=== PATIENT | female | born 1945 | race Caucasian/White ===

== ENCOUNTER 2018-02-19 13:24 | Outpatient (CLI) | payer MEDICARE | END 2018-02-19 13:25 | disposition home or self-care (01) | LOC: BICMAMMO 13:24 | PROVIDERS: ATTEND Internal Medicine | DX: Z12.31 Encounter for screening mammogram for malignant neoplasm of breast (principal) | CPT/HCPCS: 77063; 77067 ==

== ENCOUNTER 2018-11-07 16:40 | Emergency (ER) | payer MEDICARE ==
[2018-11-07 17:31] LABS: #Basophils 0.1 thou/uL (0.0-0.2); #Eosinphils 0.1 thou/uL (0.0-0.7); #Lymphocytes 1.6 thou/uL (1.20-3.40); #Monocytes 0.4 thou/uL (0.11-0.59); #Neutrophils 3.9 thou/uL (1.40-6.50); %Basophils 1.1 % (0.0-1.0); %Eosinophils 1.7 % (0.0-10.0); %Lymphocytes 26.3 % (21.0-51.0); %Monocytes 6.9 % (0.0-10.0); Hemoglobin 13.2 g/dL (12.0-16.0); Mean Corpuscular HGB CONC 33.5 g/dL (32.0-36.0); Mean Corpuscular Hemoglobin 33.7 pg (27.0-31.0); Mean Platelet Volume 8.6 fL (7.4-10.4); Platelet Count 189 thou/uL (130-400); RBC Distribution Width 12.3 % (11.5-14.5); White Blood Cell (WBC) Count 6.1 thou/uL (4.8-10.8)
--- NOTE | 2018-11-07 17:34 | RAD ---
PORTABLE CHEST ONE VIEW: 11/07/18 at 4:58 p.m. HISTORY: Chest pain. FINDINGS: Comparison made with exam of 02/10/16. Left sided pacemaker device remains in place. The heart size is normal. The aorta is tortuous. The ariella ngs are well expanded without focal areas of consolidation, pneumothoraces or pleural effusions. IMPRESSION: No radiographic evidence of acute cardiopulmonary process. POS: OFF
[2018-11-07 17:58] LABS: ALT (SGPT) 18 U/L (8-55); AST (SGOT) 24 U/L (5-34); Albumin 4.5 g/dL (3.4-4.8); Alkaline Phosphatase 52 U/L (40-150); Anion Gap 13 mmol/L (10-20); BUN (Urea Nitrogen) 25 mg/dL (9.8-20.1); Bilirubin, Total 0.6 mg/dL (0.2-1.2); Calc. Creatinine Clearance 0 mL/min (70-130); Calcium 10.7 mg/dL (7.8-10.44); Carbon Dioxide 27 mmol/L (23-31); Chloride 103 mmol/L (98-107); Estimated GFR-MDRD 53; Globulin 2.4 g/dL (2.4-3.5); Glucose 99 mg/dL (83-110); Potassium 4.1 mmol/L (3.5-5.1); Protein, Total 6.9 g/dL (6.0-8.3); Sodium 139 mmol/L (136-145)
== END 2018-11-07 19:02 | disposition home or self-care (01) ==
LOC: ERS 16:40
DX: M79.602 Pain in left arm (principal); R20.2 Paresthesia of skin; E03.9 Hypothyroidism, unspecified; E78.5 Hyperlipidemia, unspecified; Z79.899 Other long term (current) drug therapy
CPT/HCPCS: 36415; 71045; 80053; 84484; 85025; 93005

== ENCOUNTER 2018-12-24 09:45 | Observation (INO) | payer MEDICARE ==
[2018-12-24 10:36] LABS: #Basophils 0.1 thou/uL (0.0-0.2); #Eosinphils 0.1 thou/uL (0.0-0.7); #Lymphocytes 1.2 thou/uL (1.20-3.40); #Monocytes 0.4 thou/uL (0.11-0.59); #Neutrophils 5.7 thou/uL (1.40-6.50); %Basophils 0.7 % (0.0-1.0); %Eosinophils 1.7 % (0.0-10.0); %Lymphocytes 16.2 % (21.0-51.0); %Monocytes 5.7 % (0.0-10.0); %Neutrophils 75.7 % (42.0-75.0); Hemoglobin 13.2 g/dL (12.0-16.0); Mean Corpuscular Hemoglobin 33.3 pg (27.0-31.0); Mean Corpuscular Volume 97.8 fL (78.0-98.0); Mean Platelet Volume 8.3 fL (7.4-10.4); Platelet Count 174 thou/uL (130-400); RBC Distribution Width 12.4 % (11.5-14.5); Red Blood Cell (RBC) Count 3.98 mill/uL (4.20-5.40); White Blood Cell (WBC) Count 7.5 thou/uL (4.8-10.8)
--- NOTE | 2018-12-24 10:43 | RAD ---
CHEST ONE VIEW: INDICATIONS: Dizziness. COMPARISON: 10/21/2018 FINDINGS: Chronic lung changes are stable. A dual-lead pacemaker is stable. No acute air space opacity, pleur al effusion, or pneumothorax is evident. No acute osseous abnormality is noted. IMPRESSION: No acute abnormality. POS: TPC
[2018-12-24 10:56] LABS: ALT (SGPT) 17 U/L (8-55); AST (SGOT) 21 U/L (5-34); Albumin 4.1 g/dL (3.4-4.8); Alkaline Phosphatase 48 U/L (40-150); Anion Gap 10 mmol/L (10-20); BUN (Urea Nitrogen) 15 mg/dL (9.8-20.1); Bilirubin, Total 0.7 mg/dL (0.2-1.2); CK (CPK) 46 U/L (29-168); Calc. Creatinine Clearance 0 mL/min (70-130); Calcium 10.5 mg/dL (7.8-10.44); Carbon Dioxide 30 mmol/L (23-31); Chloride 102 mmol/L (98-107); Estimated GFR-MDRD 57; Globulin 2.4 g/dL (2.4-3.5); Glucose 96 mg/dL (83-110); Lipase 18 U/L (8-78); Potassium 3.6 mmol/L (3.5-5.1); Protein, Total 6.5 g/dL (6.0-8.3); Sodium 138 mmol/L (136-145)
--- NOTE | 2018-12-24 10:59 | CT ---
Head CT without contrast 12/24/2018: HISTORY: Syncope, dizziness, nausea COMPARISON: 10/18/2018 TECHNIQUE: Axial CT imaging at 5 mm intervals from vertex through skull base without contrast FINDINGS: Imaged paranasal sinuses/mastoid air cells well-aerated. Mild cerebral volume loss. No intr acranial hemorrhage, midline shift, or mass effect. No acute osseous abnormality. IMPRESSION: No acute findings.
--- NOTE | 2018-12-24 12:12 | CT ---
CT PULMONARY ANGIOGRAM WITH IV CONTRAST AND 3D POSTPROCESSING: Date: 12/24/18 HISTORY: Dizziness, presyncope, elevated D-Dimer. FINDINGS: There is good opacification of the pulmonary arterial vasculature without filling defects to suggest pulmonary embolism. There are vascular calcifications without evidence of aneurysmal dilatation of the thoracic aorta. No pleural or pericardial effusions are seen. Emphysematous changes are seen in the lung [place] bilaterally. There are dependent changes in the adalgisa g bases. No lobar consolidation, pneumothoraces, or lung masses are identified. There are mild subseg mental atelectatic changes in the lingula. There are degenerative changes in the spine. IMPRESSION: No CT evidence of pulmonary embolism. POS: TPC
[2018-12-24] MEDS ORDERED: Ondansetron ODT 4 MG TAB PO PRN (13:05)
[2018-12-24] MEDS ORDERED: Ondansetron PF 4 MG/2 ML Vial IVP PRN (13:05)
[2018-12-24] MEDS ORDERED: Acetaminophen 325 MG TAB PO PRN (13:05)
[2018-12-24] MEDS ORDERED: Senokot S 8.6-50 MG TAB PO PRN (13:05)
[2018-12-24] MEDS ORDERED: Calcium Carbonate 500 MG ChewTAB PO PRN (13:05)
[2018-12-24 13:15] LABS: Bacteria/HPF None Seen HPF (None Seen); Bilirubin Negative (Negative); Blood, Urine 1+ (Negative); Clarity Clear (Clear); Glucose, Urine (Dipstick) Normal (Negative); Leukocyte Negative Leu/uL (Negative); Mucous/LPF Rare LPF (<2+); Nitrite Negative (Negative); Protein, Urine (Dipstick) Negative (Neg-Trace); Squamous Epithelial 0-3 HPF (0-3); Urobilinogen Normal mg/dL (Less than 2); WBC/HPF 0-3 HPF (0-3)
--- NOTE | 2018-12-24 13:37 | HP ---
PRIMARY CARE PHYSICIAN: Hector Mary MD PRIMARY BLOOD BANK CALENDAR CONTROL CLERK: Wilma Aguillon MD CHIEF COMPLAINT: Near syncopal episode. HISTORY OF PRESENT ILLNESS: The patient is a 73-year-old female with symptomatic bradycardia, status post pacemaker, hypertension, and hypothyroidism presented to the emergency room with near syncopal episode. History obtained from the patient. The patient had a near syncopal episode while she was at home earlier today. She denies any loss of consciousness. No warning symptoms reported. It was sudden onset, lasted for approximately 5 minutes or so. She was nauseous, however, denies any vomiting. Over the last 1 week, the patient has been dizzy on and off. Denies any palpitations, fever, chills, dysuria, hematuria, or urgency. No recent immobilization travel. No similar symptoms in the past. Per ER report, the patient recently had an MRI and was found to have spurs in her vertebrae. She was started on tramadol. She is also on ciprofloxacin for unclear reason. In the emergency room, her initial vital signs showed temperature 97.5 with respirations of 16, pulse rate of 60, blood pressure of 139/82 with O2 saturation 99% on room air. Her EKG showed paced rhythm. CT angiogram of the chest was negative for pulmonary embolism. Orthostatic vitals in the emergency room were negative. PAST MEDICAL HISTORY: 1. Symptomatic bradycardia status post pacemaker in 2016. 2. GERD. 3. Hypothyroidism. 4. Glaucoma followed by Dr. Youngblood. 5. Psoriasis. PAST SURGICAL HISTORY: 1. History of retinal surgery. 2. Cataract surgery. 3. Oral surgery. 4. Tonsillectomy. ALLERGIES: NO KNOWN DRUG ALLERGIES. CURRENT MEDICATIONS: 1. Amlodipine 10 mg daily. 2. Nexium 40 mg daily. 3. Tramadol as needed. 4. Ciprofloxacin 250 mg b.i.d. 5. Lipitor 20 mg at bedtime. 6. Martha 180 mg daily. SOCIAL HISTORY: The patient denies any smoking. Drinks alcohol socially. Stays at home with her . She is full code and makes her own decision with the help of her . FAMILY HISTORY: Mother of complications of heart failure. Hypertension runs in her family. Father of stroke at the age of 74. REVIEW OF SYSTEMS: All other review of systems was reviewed and were found negative. PHYSICAL EXAMINATION: VITAL SIGNS: As discussed above. GENERAL: A 73-year-old female in no apparent distress. HEENT: Head, atraumatic and normocephalic. Sclerae anicteric. Moist mucous membranes. No oral lesion. Pupils were 3-4 mm bilaterally, responding to light. NECK: Supple. No JVD appreciated. No carotid bruit. LUNGS: Clear to auscultation bilaterally. No wheezing, rales, or rhonchi. HEART: S1, S2 present. Regular rate and rhythm. No rubs or gallops appreciated. There is 3/6 systolic murmur over the mitral area. ABDOMEN: Soft, nontender. Bowel sounds present. No rebound or guarding. No costovertebral angle tenderness. EXTREMITIES: No edema or calf tenderness. Power was 5/5 in all extremities. Nhgkfr-[id number] test was normal. NEUROLOGY: Grossly nonfocal, moves all 4 extremities. PSYCHIATRY: Alert, awake, and oriented x3. SKIN: Warm and dry. LYMPH NODE: No palpable lymph nodes in the neck. PERIPHERAL VASCULAR: Radial pulses palpable bilaterally. MUSCULOSKELETAL: No joint swelling or tenderness. DIAGNOSTIC DATA: EKG by my review showed paced rhythm. Chest x-ray by my review was negative for infiltrate or edema. CT scan of the brain was negative for acute findings. WBC was 7.5, hemoglobin 13.2, hematocrit 38.9, platelet 174. Chemistry showed sodium 138, potassium 3.6, chloride 102, bicarb 30, BUN 15, and creatinine 0.95. TSH was normal. IMPRESSION: 1. Near syncope of unclear etiology. 2. Symptomatic bradycardia, status post pacemaker in 2016. 3. Gastroesophageal reflux disease. 4. Hypothyroidism. 5. Hypertension. 6. Glaucoma. 7. Hypercalcemia. Her calcium in October was 10.7. 8. Chronic diastolic heart failure. 9. No significant stenosis on the carotid Doppler, last admission. PLAN: The patient will be monitored on the telemetry unit. Pacemaker will be interrogated. We will get echocardiogram. Orthostatic vitals were negative. We will consult Cardiology, Dr. Aguillon. I checked with Dr. Aguillon' office to see if echo was done recently. We will start her on gentle IV hydration. Consult walking program. Check folic acid, vitamin B12. Rule out urinary tract infection. We will discuss with the why the patient is on ciprofloxacin. Recheck labs in a.m. Fall precautions. Plan was discussed with the patient in detail. She stated understanding. We will recheck orthostatic vitals in a.m. Job ID: [id number]
[2018-12-24] MEDS ORDERED: ISOVUE-370 76%-LOCM 1 ML ONE (13:54)
[2018-12-24 14:59] VITALS: BMI 20.9
[2018-12-24 15:09] LABS: Troponin I 0.014 ng/mL (< 0.028)
[2018-12-24 15:37] LABS: Folate (Folic Acid) 11.4 ng/mL (7.0-31.4)
[2018-12-24] MEDS: Sodium Chloride 0.9% 1,000 ML IV SCH (16:11)
[2018-12-24] MEDS ORDERED: traMADol HCl 50 MG TAB PO PRN (17:02)
[2018-12-24] MEDS ORDERED: Cyanocobalamin 1000 MCG/ML VIAL IM SCH (17:15)
[2018-12-24 18:02] LABS: Troponin I Less than 0.010 ng/mL (< 0.028)
[2018-12-24] MEDS: Cipro 250 MG TAB PO SCH (19:58)
[2018-12-24] MEDS: Brimonidine Tartrate 0.2% Ophth Soln 5 ml Bottle EA EYE SCH (20:46)
[2018-12-24] MEDS: Timolol 0.5% Ophth Soln 5 ml Bottle EA EYE SCH (20:46)
[2018-12-24] MEDS ORDERED: Atorvastatin Calcium 20 MG TAB PO SCH (21:00)
[2018-12-25] MEDS: Sodium Chloride 0.9% 1,000 ML IV SCH ×2 (04:51→18:17)
[2018-12-25 04:58] LABS: Anion Gap 9 mmol/L (10-20); BUN (Urea Nitrogen) 12 mg/dL (9.8-20.1); Calc. Creatinine Clearance 58 mL/min (70-130); Calcium 10.1 mg/dL (7.8-10.44); Carbon Dioxide 30 mmol/L (23-31); Chloride 104 mmol/L (98-107); Estimated GFR-MDRD 73; Glucose 87 mg/dL (83-110); Potassium 3.3 mmol/L (3.5-5.1); Sodium 140 mmol/L (136-145)
[2018-12-25] MEDS: Cipro 250 MG TAB PO SCH (05:31)
[2018-12-25] MEDS ORDERED: Levothyroxine Sodium 100 MCG TAB PO SCH (06:00)
[2018-12-25] MEDS ORDERED: Cyanocobalamin (Vitamin B-12) 1,000 MCG TAB PO SCH (09:00)
[2018-12-25] MEDS ORDERED: Loratadine 10 MG TAB PO SCH (09:00)
[2018-12-25] MEDS ORDERED: Amlodipine 5 MG TAB PO SCH (09:00)
--- NOTE | 2018-12-25 09:32 | CON ---
DATE OF CONSULTATION: HISTORY: Shyanne Salas is a 73-year-old white female patient, followed by Dr. Aguillon, who had a pacemaker placed in January 2016, and then the following day had atrial lead revision. She has continued to be followed in the office since that time with normal pacemaker function. It is somewhat confusing to me in reviewing the record in that when she presents to the emergency room, she complained of nausea and dizziness, but no vomiting. However, the patient denies any lightheadedness, dizziness, or nausea to me. She states that the reason she came in was pain in her left arm that radiated to her fingers and thumb as well as pain on the left side of her face. She states that this was very intense, it lasted approximately 1 minute, but is still somewhat there at this time. She denies any chest discomfort. PAST MEDICAL HISTORY: Symptomatic bradycardia, status post pacemaker, GERD, hypothyroidism, and psoriasis. PAST SURGICAL HISTORY: Pacemaker placement, cataract surgery, retinal surgery, tonsillectomy MEDICATIONS: 1. Amlodipine 5 mg daily. 2. Atorvastatin 20 at bedtime. 3. Cipro 250 q.12 hours. 4. Nexium 40 mg daily. 5. Fexofenadine 180 mg daily. 6. Levothyroxine 100 mcg daily. 7. Tramadol 50 q.i.d. p.r.n. ALLERGIES: BASIL MINT AND PASTA. SOCIAL HISTORY: She does not smoke. She occasionally drinks alcohol. FAMILY HISTORY: Negative for coronary artery disease. REVIEW OF SYSTEMS: A 12-point review of systems is otherwise unremarkable. PHYSICAL EXAMINATION: VITAL SIGNS: BP 140/70 and pulse 74. HEENT: PERRL. NECK: Supple. CHEST: Clear. CARDIAC: S1 and S2 normal without any S3 or S4. There is a 2/6 holosystolic murmur at the apex. ABDOMEN: Normal bowel sounds without tenderness or organomegaly. EXTREMITIES: No clubbing, cyanosis or edema. NEUROLOGIC: Grossly intact. SKIN: Warm and dry. LABORATORY DATA/DIAGNOSTIC DATA: EKG reveals atrial pacing, poor R-wave progression. White count 7500, hemoglobin 13.2, hematocrit 38.9, and platelets 174,000. D- dimer 0.56. Sodium 138, potassium 3.6, chloride 102, carbon dioxide 30, BUN 15, creatinine 0.95, and calcium 10.5. Troponin I is normal. TSH is normal. Pacemaker was interrogated and it showed normal function, and she did not have any arrhythmias. Brain CT revealed no acute findings. Chest CTA revealed no evidence of pulmonary emboli. There are calcifications in the thoracic aorta, but no dilatation. No mention is made of any coronary artery calcifications. IMPRESSION: 1. Episode of lightheadedness and nausea, which is not related to a cardiac arrhythmia. However, the patient denies that she had these symptoms. 2. Normal pacemaker function. 3. Left arm pain. 4. Hypertension. 5. Hypothyroidism. 6. Gastroesophageal reflux disease. 7. Hypercalcemia. PLAN: The patient will continue to be monitored, although she has normal pacemaker function. Echocardiogram will be performed. Some of her left arm and left facial pain may be related to cervical radiculopathy. Job ID: [id number] [facility]
[2018-12-25] MEDS: Potassium Chloride 10 MEQ TAB PO SCH ×2 (09:37→18:17)
[2018-12-25] MEDS: Timolol 0.5% Ophth Soln 5 ml Bottle EA EYE SCH (09:38)
[2018-12-25] MEDS: Brimonidine Tartrate 0.2% Ophth Soln 5 ml Bottle EA EYE SCH (09:38)
[2018-12-25 15:52] VITALS: BP 128/60; TEMP 97.5
--- NOTE | 2018-12-25 19:30 | DIS ---
DATE OF ADMISSION: 12/24/2018 DATE OF DISCHARGE: 12/25/2018 DISCHARGE DISPOSITION: Home. FOLLOWUP: Follow up with primary care physician, Dr. Mary in 1 week. Fall precaution with 24-hour supervision was recommended. DISCHARGE MEDICATIONS: 1. Multivitamin 1 tablet daily. 2. Vitamin B12 of 1000 mcg daily. All other home medications were left unchanged INPATIENT HEARTH FEEDER: Cardiology, Dr. Mary, who was covering for Dr. Aguillon. BRIEF HOSPITAL COURSE: The patient is a 73-year-old female with symptomatic bradycardia, status post pacemaker and hypertension, presented to the emergency room with near syncopal episode. Please refer to the history and physical for further details. The patient was admitted to the hospital with a diagnosis of near-syncope of unclear etiology. The pacemaker was checked, which was normal. Echocardiogram was performed that showed left ventricular ejection fraction of 50% to 55% with diastolic dysfunction. It also showed ojwvpsyd-[id number] mitral regurgitation and mild tricuspid regurgitation. Telemetry monitoring showed paced rhythm. Orthostatic vitals were negative. Vitamin B12 level was found to be 260. A potassium was 3.6 on admission and 3.3 at discharge. Basic metabolic profile after 1 week is recommended. Primary care physician advised to follow. She has been started on vitamin B12 supplementation. The patient has been cleared by Cardiology for discharge. All other home medications were left unchanged. The near syncope could probably be due to dehydration. Calcium on admission was 10.5 and at discharge was 10.1 after IV hydration. FINAL DIAGNOSES: 1. Near syncope of unclear etiology. 2. Symptomatic bradycardia, status post pacemaker in 2016. Pacemaker check showed normal function. 3. Gastroesophageal reflux disease. 4. Hypothyroidism. 5. Hypertension. 6. Glaucoma. 7. Hypercalcemia, probably secondary to mild dehydration. 8. Chronic diastolic heart failure. 9. No significant carotid stenosis on the carotid Doppler, last admission. 10. Vitamin B12 deficiency. 11. Chronic kidney disease, stage 3. PLAN: Plan of care was discussed with the patient and at the bedside. They stated understanding. Job ID: [id number]
--- NOTE | 2018-12-28 16:20 | EKG ---
Test Reason : Blood Pressure : / mmHG Vent. Rate : 061 BPM Atrial Rate : 063 BPM P-R Int : 186 ms QRS Dur : 064 ms QT Int : 398 ms P-R-T Axes : -74 055 071 degrees QTc Int : 400 ms Atrial-paced rhythm Septal infarct , age undetermined Abnormal ECG Confirmed by MEI HERNANDES, VICTORINA ([id number]), video news editor ELIEZER SLOAN ([id number]) on 12/28/2018 4:20:02 PM Referred By: Confirmed By:VICTORINA HURLEY MD
== END 2018-12-25 19:01 | disposition home or self-care (01) ==
LOC: ERS 09:45 → 2SW 14:54
PROVIDERS: ADMIT Internal Medicine; ATTEND Internal Medicine
DX: R55 Syncope and collapse (principal); R00.1 Bradycardia, unspecified; K21.9 Gastro-esophageal reflux disease without esophagitis; E03.9 Hypothyroidism, unspecified; I13.0 Hypertensive heart and chronic kidney disease with heart failure and stage 1 through stage 4 chronic kidney disease, or unspecified chronic kidney disease; N18.3 Chronic kidney disease, stage 3 (moderate); I50.32 Chronic diastolic (congestive) heart failure; H40.9 Unspecified glaucoma; E83.52 Hypercalcemia; E53.8 Deficiency of other specified B group vitamins; E78.5 Hyperlipidemia, unspecified; Z95.0 Presence of cardiac pacemaker; Z91.018 Allergy to other foods; Z91.048 Other nonmedicinal substance allergy status; Z79.2 Long term (current) use of antibiotics; Z79.899 Other long term (current) drug therapy
CPT/HCPCS: 70450; 71045; 71275; 80048; 82550; 82607; 82746; 83605; 83690; 83735; 83880; 84484 ×2; 85379; 87040; 93005; 96360; 96361 ×2; 97139; 99285; G0378 ×2; 36415; 80053; 81003; 81015; 84443; 85025; J3420; Q9966

== ENCOUNTER 2019-03-17 14:28 | Observation (INO) | payer MEDICARE ==
[2019-03-17 15:44] LABS: #Basophils 0.1 thou/uL (0.0-0.2); #Eosinphils 0.2 thou/uL (0.0-0.7); #Lymphocytes 1.4 thou/uL (1.20-3.40); #Monocytes 0.5 thou/uL (0.11-0.59); #Neutrophils 3.9 thou/uL (1.40-6.50); %Basophils 1.5 % (0.0-1.0); %Eosinophils 2.6 % (0.0-10.0); %Lymphocytes 23.7 % (21.0-51.0); %Monocytes 8.1 % (0.0-10.0); %Neutrophils 64.1 % (42.0-75.0); Hemoglobin 12.6 g/dL (12.0-16.0); Mean Corpuscular HGB CONC 33.6 g/dL (32.0-36.0); Mean Corpuscular Hemoglobin 33.4 pg (27.0-31.0); Mean Corpuscular Volume 99.4 fL (78.0-98.0); Mean Platelet Volume 8.4 fL (7.4-10.4); Platelet Count 164 thou/uL (130-400); RBC Distribution Width 12.8 % (11.5-14.5); Red Blood Cell (RBC) Count 3.78 mill/uL (4.20-5.40); White Blood Cell (WBC) Count 6.1 thou/uL (4.8-10.8)
--- NOTE | 2019-03-17 16:00 | CT ---
CT BRAIN WITHOUT CONTRAST: Date: 03/17/19 HISTORY: Dizziness. Syncope. FINDINGS: Comparison made with exam of 12/24/18. No evidence of acute infarct, hemorrhage, midline shift, or abnormal extra-axial fluid collections ar e seen. The ventricular size is stable and the basilar cisterns are patent. The bony calvarium is int act. The visualized paranasal sinuses and mastoid air cells are well aerated. IMPRESSION: No CT evidence of acute intracranial process. POS: OFF
[2019-03-17 16:08] LABS: ALT (SGPT) 17 U/L (8-55); AST (SGOT) 18 U/L (5-34); Albumin 4.1 g/dL (3.4-4.8); Alkaline Phosphatase 52 U/L (40-110); Anion Gap 8 mmol/L (10-20); BUN (Urea Nitrogen) 16 mg/dL (9.8-20.1); Bilirubin, Total 0.4 mg/dL (0.2-1.2); Calc. Creatinine Clearance 0 mL/min (70-130); Calcium 10.1 mg/dL (7.8-10.44); Carbon Dioxide 31 mmol/L (23-31); Chloride 104 mmol/L (98-107); Estimated GFR-MDRD 55; Globulin 2.6 g/dL (2.4-3.5); Glucose 70 mg/dL (83-110); Potassium 3.9 mmol/L (3.5-5.1); Protein, Total 6.7 g/dL (6.0-8.3); Sodium 139 mmol/L (136-145)
[2019-03-17] MEDS ORDERED: Aspirin 325 MG TAB ONE (16:45)
[2019-03-17 17:22] LABS: Bacteria/HPF None Seen HPF (None Seen); Bilirubin Negative (Negative); Blood, Urine 2+ (Negative); Clarity Clear (Clear); Glucose, Urine (Dipstick) Normal (Negative); Leukocyte Negative Leu/uL (Negative); Nitrite Negative (Negative); Protein, Urine (Dipstick) Negative (Neg-Trace); Squamous Epithelial None Seen HPF (0-3); Urobilinogen Normal mg/dL (Less than 2); WBC/HPF 0-3 HPF (0-3)
[2019-03-17] MEDS ORDERED: Senokot S 8.6-50 MG TAB PO PRN (18:14)
[2019-03-17] MEDS ORDERED: Acetaminophen 325 MG TAB PO PRN (18:14)
--- NOTE | 2019-03-18 01:42 | HP ---
PRIMARY CARE PHYSICIAN: Hector Mary MD CHIEF COMPLAINT: Lightheadedness, left-sided facial twitching, and tingling. HISTORY OF PRESENT ILLNESS: Ms. Salas is a 73-year-old female with past medical history of hypertension, bradycardia status post pacemaker in 2016, hyperlipidemia, and hypothyroidism, presents to the ER for left-sided facial tingling with associated dizziness and lightheadedness. The patient reports that symptoms started around noon on day of admission, lasting 1 minute and recurred about 2 or 3 times. She denied any focal weakness and denies any current tingling at this time. She denied any chest pain, shortness of breath, syncope, headache, vision changes, abdominal pain, or nausea. The patient reports that she has had 2-3 weeks of dizziness, lightheadedness, had a near syncope episode several weeks ago, is being worked up by her PCP. Reports that she was taken off some blood pressure medications for orthostatic hypotension, but she believes that the episode today is different than that she had 2-3 weeks ago. The patient recently hospitalized for syncope, had an echocardiogram done in December of 2018, which showed an ejection fraction at 50-55%, normal size left atrium, left ventricular size is normal, impaired relaxation compatible with diastolic dysfunction, prolapsed anterior leaflet of mitral valve, moderate to severe mitral regurgitation, mild tricuspid regurgitation. Pacer wires visualized in the ventricle. EKG in the emergency room showed paced rhythm. T-waves normal. ST segments normal. Radiology, CT of the head without contrast showed no acute findings. The patient will be admitted to the Stroke Unit for further management. PAST MEDICAL HISTORY: Pertinent for bradycardia treated with a pacemaker, hypothyroidism, and hyperlipidemia. PAST SURGICAL HISTORY: Tonsillectomy, insertion of a pacemaker, wisdom teeth extraction, cataracts bilateral, history of laser surgery to the right eye, retina replaced in the left eye and also in the right eye. SOCIAL HISTORY: The patient denies any drug use. Reports that she drinks every day, less than 5 drinks per day. Has no smoking history. REVIEW OF SYSTEMS: The patient reports weakness. Reports left-sided intermittent tingling has since resolved. Denies any shortness of breath. Denies any peripheral weakness, numbness, or tingling. GI, denies any abdominal pain, constipation, or diarrhea. Does report some melena for the last 3 days. Reports last colonoscopy was 5 years ago. Reports a near syncopal episode 3 weeks ago. Reports some dizziness. Denies any speech changes. Denies any sensory changes. All other systems are reviewed and are negative unless mentioned in the HPI. PHYSICAL EXAMINATION: VITAL SIGNS: Blood pressure 190/103, pulse is 60, respirations 17, temperature is 97.9, and O2 saturations are 99% on room air. CONSTITUTIONAL: The patient is alert and oriented to person, place, and time. She is in no acute distress. HEENT: Head is atraumatic and normocephalic. Eyes, pupils are equal, round, and reactive to light. Sclerae are normal. ENT; mouth exam is normal. Mucous membranes are moist. NECK: Normal range of motion. Trachea is midline. RESPIRATORY: Chest; breath sounds are clear. Chest movement is symmetrical. CARDIOVASCULAR: Paced rhythm. Heart sounds are normal. ABDOMEN: Nontender. Bowel sounds are heard. EXTREMITIES: Upper extremities; normal to inspection. Normal motor strength, normal sensation. Radial pulses are normal. Lower extremities; normal inspection. Normal range of motion. Normal sensation. Pedal pulses are normal. No edema is noted. NEURO: The patient is oriented to person, place, and time. Speech is normal. Cranial nerves II through XII are grossly intact. There are no focal sensory or motor deficits. No nystagmus. SKIN: Warm and dry. Normal in color. DIAGNOSTIC STUDIES: LABORATORY RESULTS: Urine shows 2+ urine, 2+ blood. Troponin is undetectable. Chemistry unremarkable. CBC, white blood cell count 6.1, hemoglobin 12.6, hematocrit is 37.6, and platelets are 164. PLAN/ASSESSMENT: 1. Possible transient ischemic attack. We will obtain an MRI of the brain without contrast if this is compatible with her pacemaker. Obtain carotid Dopplers. The patient has already had an echo within the last 3 months. We will ask PT/OT to evaluate. Aspirin 325 mg daily, which we will do once the guaiac has been collected and is negative. 2. Reports history of melena. We will obtain guaiac stool for evaluation. Hemoglobin and hematocrit appear stable. 3. History of hypertension. We will restart home medications once the MRI is done. Until then, permissive hypertension protocol. 4. Hyperlipidemia. We will restart Lipitor. 5. Hypothyroidism, obtain a TSH and restart home medications. 6. Gastrointestinal and deep venous thrombosis prophylaxis has been started. 7. Hospital course dependent on clinical findings. Job ID: [id number]
[2019-03-18 03:35] LABS: #Basophils 0.1 thou/uL (0.0-0.2); #Eosinphils 0.1 thou/uL (0.0-0.7); #Lymphocytes 1.4 thou/uL (1.20-3.40); #Monocytes 0.5 thou/uL (0.11-0.59); #Neutrophils 3.6 thou/uL (1.40-6.50); %Basophils 0.9 % (0.0-1.0); %Eosinophils 2.4 % (0.0-10.0); %Lymphocytes 24.5 % (21.0-51.0); %Monocytes 9.2 % (0.0-10.0); Hemoglobin 11.8 g/dL (12.0-16.0); Mean Corpuscular Hemoglobin 33.8 pg (27.0-31.0); Mean Corpuscular Volume 99.3 fL (78.0-98.0); Mean Platelet Volume 8.3 fL (7.4-10.4); Platelet Count 150 thou/uL (130-400); RBC Distribution Width 12.9 % (11.5-14.5); Red Blood Cell (RBC) Count 3.49 mill/uL (4.20-5.40); White Blood Cell (WBC) Count 5.8 thou/uL (4.8-10.8)
[2019-03-18 04:13] LABS: Anion Gap 8 mmol/L (10-20); BUN (Urea Nitrogen) 19 mg/dL (9.8-20.1); Calc. Creatinine Clearance 0 mL/min (70-130); Carbon Dioxide 31 mmol/L (23-31); Chloride 105 mmol/L (98-107); Estimated GFR-MDRD 63; Glucose 73 mg/dL (83-110); Potassium 3.9 mmol/L (3.5-5.1); Sodium 140 mmol/L (136-145)
[2019-03-18] MEDS: Levothyroxine Sodium 100 MCG TAB PO SCH (06:18)
[2019-03-18] MEDS ORDERED: Enoxaparin Sodium 40 MG/0.4 ML SYRINGE SC SCH (09:00)
--- NOTE | 2019-03-18 09:00 | ULT ---
BILATERAL CAROTID DUPLEX ULTRASOUND: HISTORY: Left-sided facial droop. TECHNIQUE: Hallman-scale ultrasound with color-flow and spectral Doppler imaging of the extracranial carotid artery systems is performed bilaterally. FINDINGS: There is plaque formation on either side. The peak systolic velocity in the right ICA measures 65 cm per second with an end diastolic velocity of 22 cm per second and a systolic ratio of 1.07. The peak systolic velocity in the left ICA measures 66 cm per second with an end diastolic velocity o f 24 cm per second and a systolic ratio of 1.2. Flow in both vertebral arteries remains antegrade. IMPRESSION: No evidence of hemodynamically significant stenosis. POS: OFF
[2019-03-18] MEDS: Famotidine 20 MG TAB PO SCH ×2 (10:38→10:40)
[2019-03-18] MEDS ORDERED: Labetalol HCl 100 MG/20 ML VIAL SLOW IVP PRN (10:41)
[2019-03-18] MEDS ORDERED: Amlodipine 5 MG TAB PO SCH (10:45)
[2019-03-18 10:48] VITALS: BMI 21.3
[2019-03-18] MEDS: Pantoprazole 40 MG VIAL IVP SCH ×3 (11:05→21:40)
[2019-03-18 11:14] LABS: Hemoglobin 12.8 g/dL (12.0-16.0)
[2019-03-18] MEDS ORDERED: Pantoprazole 40 MG VIAL ONE (11:46)
[2019-03-18] MEDS ORDERED: Atorvastatin Calcium 20 MG TAB PO SCH (21:00)
[2019-03-18] MEDS: Timolol 0.5% Ophth Soln 5 ml Bottle EA EYE SCH (21:50)
[2019-03-18] MEDS: Brimonidine Tartrate 0.2% Ophth Soln 5 ml Bottle EA EYE SCH (21:50)
--- NOTE | 2019-03-18 23:01 | PRG ---
DATE OF SERVICE: 03/18/2019 SUBJECTIVE: A 73-year-old female with hypertension, sick sinus syndrome, status post pacemaker, hyperlipidemia, and hypothyroidism, presented to the emergency room with lightheadedness along with left-sided paresthesias. She has currently been admitted for possible transient ischemic attack. She denies any symptoms at this time. No fever, chills, chest pain, shortness of breath, headache, seizure, or syncope reported. Over the last 3 days, the patient had dark tarry stool. She denies any new episodes at this time. REVIEW OF SYSTEMS: As discussed above. OBJECTIVE: VITAL SIGNS: Temperature 97.3, pulse rate of 60, respirations of 18, blood pressure of 154/87, O2 saturation of 100% on room air, and respirations of 18. Her blood pressure in the emergency room on arrival was 161/86. She also had blood pressure of 205/117 in the emergency room. GENERAL: A 73-year-old female, in no apparent distress. LUNGS: Clear to auscultation bilaterally. No wheezing, rales, or rhonchi. HEART: S1 and S2 present. Regular rate and rhythm. No rubs or gallops. ABDOMEN: Soft and nontender. Bowel sounds present. EXTREMITIES: No edema or calf tenderness. NEUROLOGY: Cranial nerves 2 through 12 are normal on examination. Power was 5/5 in all extremities. Epjmjt-fk-qncc and jsim-on-medu test was normal. Reflexes were equivocal. Sensation to touch was normal bilaterally. PSYCHIATRY: The patient is alert, awake, and oriented x3. Normal affect. She is a poor historian. LABORATORY DATA: Hemoglobin 12.8, hematocrit 37.9. Vitamin B12 of 456, folic acid 12.7, and magnesium 2.7. Creatinine of 0.88. Urinalysis was negative. Carotid Doppler was negative for hemodynamically significant stenosis. IMPRESSION: 1. Suspected transient ischemic attack. Aspirin is currently on hold due to melena. 2. Melena over the last 2 to 3 days. The patient denies any current use of antiplatelet agent. 3. Hypertension. 4. Hyperlipidemia. 5. Hypothyroidism. 6. Sick sinus syndrome, status post pacemaker. 7. Gastroesophageal reflux disease. 8. Glaucoma. 9. Chronic diastolic heart failure. 10. History of vitamin B12 deficiency. 11. Chronic kidney disease, stage 2. PLAN: The patient will be monitored in the stroke unit. We will recheck hemoglobin in a.m. Gastroenterology Team has been consulted. Aspirin is currently on hold due to melena. We will check fasting lipid profile in a.m. Consult Physical Therapy and Occupational Therapy. Continue amlodipine, statin, and levothyroxine. The patient has been started on IV PPIs as well. P.r.n. antihypertensives. Clear liquid diet. Plan of care was discussed with the patient in detail, she stated understanding. Job ID: [id number]
--- NOTE | 2019-03-18 23:50 | CON ---
DATE OF CONSULTATION: 03/18/2019 CHIEF COMPLAINT: Dark stools. HISTORY OF PRESENT ILLNESS: Ms. Salas is a 73-year-old woman, who was admitted through the emergency room last night with lightheadedness and some tingling and left-sided face twitching. There was concern for possible transient ischemic attack and she was admitted and monitored in the stroke unit. She reports that she has had dark stools 1 to 2 times per day for the last four days. She has had no nausea, vomiting, or abdominal pain. No diarrhea or constipation. No change in her diet. She has not had any Pepto-Bismol. She states that she has been on Nexium 40 mg daily for history of acid reflux, but all her acid reflux symptoms actually went away after she stopped drinking wine. PAST MEDICAL HISTORY: Hypothyroidism, hyperlipidemia, bradycardia status post pacemaker placement. PAST SURGICAL HISTORY: Her last EGD was in September of 2015. She had benign fundic gland polyps noted in the stomach, but otherwise EGD was normal. She had colonoscopy in September of 2015, for screening which was normal. She has followed with Dr. Hallman previously. PAST SURGICAL HISTORY: Continued tonsillectomy, pacemaker placement, wisdom tooth removal, cataract surgery. SOCIAL HISTORY: She previously has been drinking wine in the evening, but states that she quit doing that and her reflux symptoms resolved. She has no smoking history or drug use. FAMILY HISTORY: Negative for GI malignancy. ALLERGIES: NO KNOWN DRUG ALLERGIES. MEDICATIONS: Prior to admission: 1. Multiple vitamin. 2. Levothyroxine. 3. Martha. 4. Nexium 40 mg daily. 5. Eye drops. 6. Atorvastatin. 7. Amlodipine. REVIEW OF SYSTEMS: Negative x10 systems reviewed except as stated in the history of present illness. PHYSICAL EXAMINATION: VITAL SIGNS: Temperature 97.5, pulse 70, blood pressure 193/89. GENERAL: She is in no acute distress. Alert and oriented x3. HEENT: Eyes have no scleral icterus. Oropharynx is clear without lesions. No cervical or supraclavicular lymphadenopathy. LUNGS: Clear to auscultation bilaterally. HEART: Regular rate and rhythm without murmur. ABDOMEN: Soft, nontender, and nondistended. Bowel sounds are present. EXTREMITIES: No lower extremity edema. RECTAL: Reveals brown stool in the rectal vault. LABORATORY DATA: White blood cell count 5.8, hemoglobin is 12.8, platelets 150, creatinine 0.88. Liver tests were normal. IMPRESSION: 1. Change in bowel habits with dark stools for the last 3 or 4 days. She was reportedly Hemoccult positive in the ER. She has brown stool in the rectal vault now without signs of overt bleeding. She had negative esophagogastroduodenoscopy and colonoscopy in 2016. 2. History of gastroesophageal reflux disease. She has been on Nexium 40 mg daily. She has been asymptomatic since she quit drinking wine in the evening. She could try to cut the Nexium back to 20 mg daily over the counter and if this controls her symptoms just as well, then she can remain on the lower dose. RECOMMENDATIONS: 1. Anticipate discharge home tomorrow. 2. Continue to follow her hemoglobin tomorrow morning and for further signs of overt bleeding. 3. For now, there is no evidence of acute GI bleed and she can follow up in GI clinic as needed. Job ID: [id number]
[2019-03-19 05:07] LABS: Hemoglobin 11.7 g/dL (12.0-16.0); Platelet Count 150 thou/uL (130-400)
[2019-03-19 05:28] LABS: Cardiac Risk 3.2 (Less than 4.5)
[2019-03-19] MEDS: Levothyroxine Sodium 100 MCG TAB PO SCH (06:34)
[2019-03-19] MEDS ORDERED: FLU VACC TS2019-20(65YR UP)/PF 180 MCG/0.5 ML SYRINGE IM ONE (09:00)
[2019-03-19] MEDS ORDERED: Amlodipine 5 MG TAB PO SCH (09:00)
[2019-03-19] MEDS: Pantoprazole 40 MG VIAL IVP SCH (09:27)
[2019-03-19] MEDS: Timolol 0.5% Ophth Soln 5 ml Bottle EA EYE SCH (09:44)
[2019-03-19] MEDS: Brimonidine Tartrate 0.2% Ophth Soln 5 ml Bottle EA EYE SCH (09:45)
[2019-03-19 11:43] VITALS: BP 128/65; TEMP 97.5
--- NOTE | 2019-03-19 19:54 | DIS ---
DATE OF ADMISSION: 03/17/2019 DATE OF DISCHARGE: 03/19/2019 DISCHARGE DISPOSITION: Home. FOLLOWUP: 1. Follow up with primary care physician, Dr. Mary in 1 week. 2. Follow up with Dr. Mandeep Fofana in 2 to 3 weeks. ALLERGIES: NO KNOWN DRUG ALLERGIES. DISCHARGE MEDICATIONS: 1. Aspirin 81 mg daily. 2. Multivitamin 1 tablet daily. 3. Nexium 40 mg daily. 4. Martha 180 mg daily. 5. Lipitor 20 mg at bedtime. 6. Amlodipine 5 mg daily. 7. Combigan eye drops b.i.d. INPATIENT CAREER PROFESSIONAL: Gastroenterology, Dr. Fofana. BRIEF HOSPITAL COURSE: The patient is a 73-year-old female with hypertension; sick sinus syndrome, status post pacemaker; hyperlipidemia; and hypothyroidism; presented to the hospital with lightheadedness with nonspecific left-sided facial twitching and tingling. She also later mentioned that she had dark stool over the last 2 days. Please refer to the history and physical for further details. The patient was monitored in the stroke unit with a diagnosis of suspected transient ischemic attack. Carotid Doppler was negative for hemodynamically significant stenosis. She had an echocardiogram 3 months ago that showed ejection fraction 50% to 55% with diastolic dysfunction, [id number] mitral regurgitation, mild tricuspid regurgitation. Due to dark tarry stool, she was evaluated by Dr. Fofana. Rectal examination showed brown stool in the rectal vault. The patient appears stable for discharge. She will follow up with Gastroenterology Service for possible intervention if needed. Low-dose aspirin has been started due to symptoms concerning for questionable transient ischemic attack. Fall precaution was emphasized. The patient understands the risk associated with aspirin. DIAGNOSTIC TESTS: Vitamin B12 of 456, folic acid 12.7. Fasting lipid showed triglyceride 69, cholesterol 169, LDL 102, HDL 53. Hemoglobin on admission 12.6, at discharge 11.7 FINAL DIAGNOSES: 1. Suspected transient ischemic attack. 2. Questionable melena. Rectal examination showed brown stool in the rectal vault. The patient was advised to follow up with GI as outpatient. 3. Hypertension. 4. Hyperlipidemia. 5. Sick sinus syndrome, status post pacemaker. 6. Hypothyroidism. 7. Gastroesophageal reflux disease. 8. Glaucoma. 9. Chronic diastolic heart failure. 10. History of vitamin B12 deficiency. 11. Chronic kidney disease stage 2. Plan was discussed with the patient in detail, she stated understanding. Job ID: [id number]
== END 2019-03-19 16:20 | disposition home or self-care (01) ==
LOC: ERS 14:28 → ERHOLD 18:10 → 2SE 03-18 13:08
PROVIDERS: ADMIT Internal Medicine; ATTEND Internal Medicine
DX: R20.2 Paresthesia of skin (principal); R42 Dizziness and giddiness; K92.1 Melena; I12.9 Hypertensive chronic kidney disease with stage 1 through stage 4 chronic kidney disease, or unspecified chronic kidney disease; N18.2 Chronic kidney disease, stage 2 (mild); I50.32 Chronic diastolic (congestive) heart failure; I49.5 Sick sinus syndrome; E03.9 Hypothyroidism, unspecified; K21.9 Gastro-esophageal reflux disease without esophagitis; E78.5 Hyperlipidemia, unspecified; H40.9 Unspecified glaucoma; Z79.899 Other long term (current) drug therapy; Z91.018 Allergy to other foods; Z95.0 Presence of cardiac pacemaker
CPT/HCPCS: 70450; 80048; 80053; 80061; 82274; 82607; 82746; 83735; 84484 ×2; 85014 ×2; 85018 ×2; 85025 ×2; 85049; 86850; 86900; 86901; 90662; 93005; 93880; 96374; 96376; 97116; 97139 ×5; 97530; 99285; G0008; G0378 ×4; 36415; 36416; 81003; 81015; 90471; C9113

== ENCOUNTER 2019-03-29 07:17 | Emergency (ER) | payer MEDICARE ==
[2019-03-29 08:40] LABS: #Basophils 0.1 thou/uL (0.0-0.2); #Eosinphils 0.2 thou/uL (0.0-0.7); #Lymphocytes 1.2 thou/uL (1.20-3.40); #Monocytes 0.4 thou/uL (0.11-0.59); #Neutrophils 4.1 thou/uL (1.40-6.50); %Basophils 1.3 % (0.0-1.0); %Eosinophils 2.8 % (0.0-10.0); %Lymphocytes 19.8 % (21.0-51.0); %Monocytes 6.6 % (0.0-10.0); %Neutrophils 69.5 % (42.0-75.0); Hemoglobin 11.7 g/dL (12.0-16.0); Mean Corpuscular HGB CONC 34.4 g/dL (32.0-36.0); Mean Corpuscular Hemoglobin 34.1 pg (27.0-31.0); Mean Platelet Volume 8.4 fL (7.4-10.4); Platelet Count 160 thou/uL (130-400); RBC Distribution Width 12.7 % (11.5-14.5); Red Blood Cell (RBC) Count 3.44 mill/uL (4.20-5.40); White Blood Cell (WBC) Count 5.9 thou/uL (4.8-10.8)
[2019-03-29 09:00] LABS: ALT (SGPT) 16 U/L (8-55); AST (SGOT) 18 U/L (5-34); Albumin 3.7 g/dL (3.4-4.8); Alkaline Phosphatase 47 U/L (40-110); Anion Gap 9 mmol/L (10-20); BUN (Urea Nitrogen) 14 mg/dL (9.8-20.1); Bilirubin, Total 0.6 mg/dL (0.2-1.2); Calc. Creatinine Clearance 0 mL/min (70-130); Carbon Dioxide 28 mmol/L (23-31); Chloride 104 mmol/L (98-107); Estimated GFR-MDRD 68; Globulin 2.2 g/dL (2.4-3.5); Glucose 84 mg/dL (83-110); Potassium 3.8 mmol/L (3.5-5.1); Protein, Total 5.9 g/dL (6.0-8.3); Sodium 137 mmol/L (136-145)
--- NOTE | 2019-03-29 09:02 | RAD ---
RADIOGRAPH CHEST 1 VIEW: DATE: 03/29/2019 HISTORY: 73-year-old female with facial pain. FINDINGS: There are no airspace densities, pulmonary edema, pneumothorax, or cardiomegaly. The lateral costophr enic angles are sharp. There is a dual-lead left subclavian transvenous pacemaker. IMPRESSION: 1. No acute cardiopulmonary findings. 2. Evidence for cardiac dysrhythmia: Pacemaker
[2019-03-29] MEDS ORDERED: Ketorolac Tromethamine 30 MG/ML VIAL ONE (09:14)
--- NOTE | 2019-03-29 10:21 | CT ---
CT CERVICAL SPINE NONCONTRAST: DATE: 03/29/2019 HISTORY: 73-year-old female with bilateral cervical radiculopathy: Paresthesia of fingers. FINDINGS: There are no jumped or perched facets. There is no evidence of acute fracture. The vertebral body hei ghts are maintained. There is no prevertebral soft tissue swelling. There is mild disc space narrowing at all levels. No severe disc space narrowing. Multilevel bilateral facet DJD, with the wor st levels being on the right at C4-5 (severe) and on the left at C3-4 (severe). Additional levels of moderate left facet DJD. No central spinal canal stenosis at any level. High-grade right neural fo raminal stenosis at C4-5. High-grade left neural foraminal stenosis at C5-6. IMPRESSION: 1. No evidence of acute fracture or acute traumatic subluxation. 2. High-grade neural foraminal stenosis on the right at C4-5 and on the left at C5-6. 3. No high-grade central spinal canal stenosis at any level. 4. Cervical spondylosis consisting of bilateral facet osteoarthrosis.
[2019-03-29] MEDS ORDERED: Acetaminophen 325 MG TAB ONE (10:34)
== END 2019-03-29 12:22 | disposition home or self-care (01) ==
LOC: ERS 07:17
DX: M48.02 Spinal stenosis, cervical region (principal); R68.84 Jaw pain; E03.9 Hypothyroidism, unspecified; E78.5 Hyperlipidemia, unspecified; E78.00 Pure hypercholesterolemia, unspecified
CPT/HCPCS: 36415; 71045; 72125; 80053; 84484; 85025; 93005; 94760; 96374; J1885

== ENCOUNTER 2019-04-28 15:57 | Emergency (ER) | payer MEDICARE ==
[2019-04-28] MEDS ORDERED: predniSONE 20 MG TAB ONE (19:01)
[2019-04-28] MEDS ORDERED: HYDROcodone/Acetaminophen 5/325 mg Tablet ONE (19:01)
== END 2019-04-28 20:14 | disposition home or self-care (01) ==
LOC: ERS 15:57
DX: M54.2 Cervicalgia (principal); E03.9 Hypothyroidism, unspecified; E78.5 Hyperlipidemia, unspecified; E78.00 Pure hypercholesterolemia, unspecified; Z87.891 Personal history of nicotine dependence; Z79.899 Other long term (current) drug therapy
CPT/HCPCS: 93005; J7512

== ENCOUNTER 2019-10-30 15:38 | Inpatient (IN) | payer MEDICARE, OTHER ==
[2019-10-30 16:17] LABS: #Basophils 0.1 thou/uL (0.0-0.2); #Eosinphils 0.1 thou/uL (0.0-0.7); #Lymphocytes 1.4 thou/uL (1.20-3.40); #Monocytes 0.4 thou/uL (0.11-0.59); #Neutrophils 3.5 thou/uL (1.40-6.50); %Basophils 0.9 % (0.0-1.0); %Eosinophils 1.2 % (0.0-10.0); %Lymphocytes 26.1 % (21.0-51.0); %Neutrophils 63.8 % (42.0-75.0); Hemoglobin 12.6 g/dL (12.0-16.0); Mean Corpuscular HGB CONC 33.8 g/dL (32.0-36.0); Mean Corpuscular Hemoglobin 34.7 pg (27.0-31.0); Mean Platelet Volume 8.7 fL (7.4-10.4); Platelet Count 156 thou/uL (130-400); Red Blood Cell (RBC) Count 3.62 mill/uL (4.20-5.40); White Blood Cell (WBC) Count 5.5 thou/uL (4.8-10.8)
--- NOTE | 2019-10-30 16:26 | RAD ---
PORTABLE CHEST: 10/30/19 PROVIDED CLINICAL HISTORY: Generalized weakness. FINDINGS: comparison 03/29/19. Cardiac and mediastinal silhouette is unchanged in appearance. Vascular calcification involves the ao rtic arch. No focal consolidation, pleural fluid, or pneumothorax apparent. Left subclavian cardiac p acing device is redemonstrated in similar position. Ovoid density overlying the midline upper abdomen is presumed external to the patient. IMPRESSION: No evidence for an acute cardiopulmonary process. POS: SANGEETA
[2019-10-30 16:37] LABS: ALT (SGPT) 16 U/L (8-55); AST (SGOT) 23 U/L (5-34); Albumin 4.1 g/dL (3.4-4.8); Alkaline Phosphatase 49 U/L (40-110); Anion Gap 11 mmol/L (10-20); BUN (Urea Nitrogen) 18 mg/dL (9.8-20.1); Bilirubin, Total 0.4 mg/dL (0.2-1.2); Calc. Creatinine Clearance 0 mL/min (70-130); Calcium 9.6 mg/dL (7.8-10.44); Carbon Dioxide 29 mmol/L (23-31); Chloride 101 mmol/L (98-107); Estimated GFR-MDRD 60; Globulin 2.5 g/dL (2.4-3.5); Glucose 84 mg/dL (83-110); Potassium 3.8 mmol/L (3.5-5.1); Protein, Total 6.6 g/dL (6.0-8.3); Sodium 137 mmol/L (136-145)
[2019-10-30 16:59] LABS: CKMB 1.8 ng/mL (0-6.6)
[2019-10-30] MEDS ORDERED: Aspirin Chewable 81 MG TAB ONE (17:58)
[2019-10-30 18:27] LABS: Troponin I 0.016 ng/mL (< 0.028)
[2019-10-30 18:55] LABS: Clarity Clear (Clear); Glucose, Urine (Dipstick) Normal (Negative); Leukocyte Negative Leu/uL (Negative); Nitrite Negative (Negative); Protein, Urine (Dipstick) 10 mg/dL (Neg-Trace)
[2019-10-30 18:56] LABS: Bacteria/HPF None Seen HPF (None Seen); Bilirubin Negative (Negative); Blood, Urine 2+ (Negative); RBC/HPF 21-50 HPF (0-3); Squamous Epithelial None Seen HPF (0-3); Urobilinogen Normal mg/dL (Less than 2); WBC/HPF 0-3 HPF (0-3)
--- NOTE | 2019-10-30 19:04 | CT ---
Exam: Head CT without contrast HISTORY: Generalized weakness COMPARISON: 03/17/2019 FINDINGS: Hemorrhage: No intraparenchymal hemorrhage or extra-axial hematoma. Brain parenchyma: Cortical mccabe-white matter differentiation is preserved. No mass effect or midline shift. Basilar cisterns are patent. Ventricular system: Ventricles and sulci are patent and symmetric. Calvarium: Intact. Sinuses and mastoid air cells: Adequate aeration. IMPRESSION: No acute intracranial process.
[2019-10-30 20:30] VITALS: BMI 20.2
[2019-10-30 21:08] LABS: Troponin I 0.029 ng/mL (< 0.028)
[2019-10-30] MEDS: Atorvastatin Calcium 20 MG TAB PO SCH (21:20)
--- NOTE | 2019-10-31 01:07 | HP ---
CHIEF COMPLAINT: Generalized weakness. HISTORY OF PRESENT ILLNESS: The patient is a 74-year-old female with a history of irregular heart rate, hypertension, who presents to the hospital with complaints of generalized weakness x1 day. The patient really is unable to provide me much of a history. is at the bedside, states that she normally ambulates with a walking stick. She does have some unsteady gait, however, today as the day progressed, she has gotten worse to the point that she is very weak and is unable to ambulate much. Denies any fevers or chills, any nausea, vomiting, diarrhea. Denies any sick contacts. Denies any recent travels. Denies any chest tightness or shortness of breath. When I asked if patient's speech had changed or if the patient was having issues having a conversation, the stated that her speech had slowed down a little bit, however, he kept insisting the patient has generalized weakness and she cannot walk. PAST MEDICAL HISTORY: As of the following: The patient has a history of bradycardia, that is why she has a pacemaker; hypothyroidism; hyperlipidemia. She also has some sort of radiculopathy on her left cervical area which has been causing her to have some pain. PAST SURGICAL HISTORY: She has had a tonsillectomy, insertion of a pacemaker, wisdom teeth extraction, cataracts bilaterally, history of laser surgery of the right eye, retina replacement in the left eye and also the right eye. SOCIAL HISTORY: The patient denies any drug use, any smoking history. She drinks few drinks on a daily basis. REVIEW OF SYSTEMS: Reports weakness. Otherwise, all negative except for the ones mentioned above in the HPI. PHYSICAL EXAMINATION: VITAL SIGNS: As of the following; temperature 97.9, respirations 22, sats 96% on room air, blood pressure 177/93, heart rate 66. GENERAL: The patient is awake, alert, and oriented x3. Does not appear in distress. She does have some slow speech, however, unclear if this is her baseline. CARDIOVASCULAR: S1 and S2 present. No murmurs, rubs, or gallops. LUNGS: Clear to auscultation. No rhonchi or wheezes noted. ABDOMEN: Soft and nontender. Bowel sounds are present x2. EXTREMITIES: No edema. Pedal pulses are present x2. NEUROVASCULAR: No focal deficits noted. I even ambulated the patient. She is weak, however, she was able to ambulate. No pronator drift. 5/5 bilateral upper extremity and lower extremity strength, intact. Zrrama-nu-cqsj, bdqj-ya-ltth intact. SKIN: No cuts, lesions, or bruises noted. LABORATORY RESULTS: As of the following; WBCs of 5.5, hemoglobin of 12.6, hematocrit of 37.2, platelets of 156. Chemistry; sodium of 137, potassium of 3.8, BUN of 18, creatinine of 0.91. Troponin x1 was 0.030, next was 0.016. The patient's urinalysis appears to be completely normal. She also had a chest x-ray that did not show any acute abnormalities. The patient also had a CT head done, which indicated no acute abnormalities. ASSESSMENT AND PLAN: The patient is a 74-year-old female, who presents to the hospital with generalized weakness. 1. Generalized weakness. Unclear etiology at this time. Her CT brain is negative. X-ray is normal. She has no elevated white count. She had only one mild elevation of troponin, but no chest pain. EKG does not show any ST elevation or depression. We will trend her troponins. We will get an echocardiogram since her previous echocardiogram did indicate a glejxdij-fg-[id number] mitral regurgitation; however, the patient denies any shortness of breath. We will also get a TSH. We will get vitamin B12 and vitamin D. She is also being tested for COVID. I do not see any infectious etiology. Her urine is completely normal. We will also get Physical Therapy to evaluate this patient. The patient may require some inpatient rehabilitation. 2. Hypothyroidism. We will continue her home medications. 3. Hyperlipidemia. Again, we will continue her home medications. 4. Bradycardia. We will interrogate her pacemaker. 5. Deep venous thrombosis prophylaxis. We will put patient on subcu heparin. Job ID: [id number]
[2019-10-31] MEDS: Levothyroxine Sodium 100 MCG TAB PO SCH (04:11)
[2019-10-31 05:06] LABS: #Basophils 0.1 thou/uL (0.0-0.2); #Eosinphils 0.1 thou/uL (0.0-0.7); #Lymphocytes 1.5 thou/uL (1.20-3.40); #Monocytes 0.5 thou/uL (0.11-0.59); %Basophils 1.4 % (0.0-1.0); %Eosinophils 1.4 % (0.0-10.0); %Lymphocytes 24.5 % (21.0-51.0); %Monocytes 7.7 % (0.0-10.0); %Neutrophils 65.1 % (42.0-75.0); Hemoglobin 12.5 g/dL (12.0-16.0); Mean Corpuscular HGB CONC 33.2 g/dL (32.0-36.0); Mean Platelet Volume 8.8 fL (7.4-10.4); Platelet Count 158 thou/uL (130-400); RBC Distribution Width 12.8 % (11.5-14.5); Red Blood Cell (RBC) Count 3.67 mill/uL (4.20-5.40); White Blood Cell (WBC) Count 6.1 thou/uL (4.8-10.8)
[2019-10-31 05:32] LABS: Anion Gap 12 mmol/L (10-20); BUN (Urea Nitrogen) 14 mg/dL (9.8-20.1); Calc. Creatinine Clearance 56 mL/min (70-130); Calcium 9.5 mg/dL (7.8-10.44); Carbon Dioxide 28 mmol/L (23-31); Chloride 96 mmol/L (98-107); Estimated GFR-MDRD 74; Glucose 85 mg/dL (83-110); Potassium 3.6 mmol/L (3.5-5.1); Sodium 132 mmol/L (136-145)
[2019-10-31] MEDS: Aspirin 81 mg Enteric Coated Tablet PO SCH (08:01)
[2019-10-31] MEDS: Brimonidine Tartrate 0.2% Ophth Soln 5 ml Bottle EA EYE SCH ×2 (08:02→20:34)
[2019-10-31] MEDS: Ketotifen Fumarate 0.025% Ophth Soln 5 ml Bottle EA EYE SCH ×2 (08:03→20:35)
[2019-10-31] MEDS: Multivit, Therapeutic 1 TAB PO SCH (08:03)
[2019-10-31] MEDS: Enoxaparin Sodium 40 MG/0.4 ML SYRINGE SC SCH (08:03)
[2019-10-31] MEDS: Timolol 0.5% Ophth Soln 5 ml Bottle EA EYE SCH ×2 (08:04→20:38)
[2019-10-31 11:10] LABS: SARS-CoV-2 MS2 Positive; SARS-CoV-2 N Gene Negative; SARS-CoV-2 S Gene Negative; SARS-CoV-2 orf1ab Negative
[2019-10-31] MEDS ORDERED: hydrALAZINE 20 MG/ML VIAL SLOW IVP PRN (16:39)
[2019-10-31] MEDS ORDERED: carBAMazepine 200 MG TAB PO SCH (17:00)
[2019-10-31] MEDS: carBAMazepine 200 MG TAB PO SCH ×2 (17:07→20:37)
--- NOTE | 2019-10-31 17:35 | PDOC.HOSPP ---
- Subjective Encounter Date: 10/31/19 Encounter Time: 10:30 Subjective: pt up in bed no complains - Objective Vital Signs & Weight: Vital Signs (12 hours) Temp Pulse Pulse Resp BP BP BP 10/31/19 15:03 97.6 F 61 16 179/83 H 10/31/19 13:33 171/79 H 10/31/19 13:32 60 171/79 H 10/31/19 11:30 96.8 F L 63 16 176/84 H 10/31/19 08:05 97.6 F 61 18 181/74 H Pulse Ox 10/31/19 15:03 96 10/31/19 13:33 10/31/19 13:32 10/31/19 11:30 98 10/31/19 08:05 96 Weight Weight 125 lb 3.2 oz I&O: 10/30/19 10/31/19 11/01/19 06:59 06:59 06:59 Intake Total 240 Output Total 750 500 Balance -510 -500 Result Diagrams: 10/31/19 04:52 10/31/19 04:52 Hospitalist ROS - Review of Systems Cardiovascular: denies: chest pain, palpitations, orthopnea, paroxysmal noc. dyspnea, edema, light headedness, other Gastrointestinal: denies: nausea, vomiting, abdominal pain, diarrhea, constipation, melena, hematochezia, other Genitourinary: denies: dysuria, frequency, incontinence, hematuria, retention, other - Medication Medications: Active Medications Generic Name Dose Route Start Last Admin Trade Name Freq PRN Reason Stop Dose Admin Aspirin 81 mg 10/31/19 09:00 10/31/19 08:01 Ecotrin PO 81 mg DAILY KERA Administration Atorvastatin Calcium 20 mg 10/30/19 21:00 10/30/19 21:20 Lipitor PO 20 mg HS KERA Administration Brimonidine Tartrate 1 drop 10/31/19 09:00 10/31/19 08:02 Alphagan 0.2% Ophth Soln EA EYE 1 drp BID KERA Administration Carbamazepine 200 mg 10/31/19 15:00 10/31/19 17:07 Tegretol PO Not Given TID KERA Carbamazepine 200 mg 10/31/19 17:00 10/31/19 17:07 Tegretol PO 10/31/19 18:00 200 mg NOW KERA Administration Enoxaparin Sodium 40 mg 10/31/19 09:00 10/31/19 08:03 Lovenox SC 40 mg 0900 KERA Administration Ketotifen Fumarate 1 drop 10/31/19 09:00 10/31/19 08:03 Zaditor 0.025% Ophth Soln EA EYE 1 drop BID KERA Administration Levothyroxine Sodium 100 mcg 10/31/19 06:00 10/31/19 04:11 Synthroid PO 100 mcg 0600 KERA Administration Multivitamins 1 tab 10/31/19 09:00 10/31/19 08:03 Theragran PO 1 tab DAILY KERA Administration Timolol Maleate 1 drop 10/31/19 09:00 10/31/19 08:04 Timoptic 0.5% Ophth Soln EA EYE 1 drop BID KERA Administration - Exam Heart: negative: RRR, no murmur, no gallops, no rubs, normal peripheral pulses, irregular, diminshed peripheral pulses, murmur present, II/IV, III/IV Respiratory: negative: CTAB, no wheezes, no rales, no ronchi, normal chest expansion, no tachypnea, normal percussion, rales, rhonchi, tachypneic, wheezes Gastrointestinal: negative: soft, non-tender, non-distended, normal bowel sounds , no palpable masses, no hepatomegaly, no splenomegaly, no bruit, no guarding, no rigidity, tender to palpation, distended, diminished bowl sounds, voluntary guarding Extremities: negative: no cyanosis, no clubbing, no edema, 1+ LE edema, 2+ LE edema, clubbing Hosp A/P (1) Generalized weakness Code(s): R53.1 - WEAKNESS Status: Acute (2) GERD (gastroesophageal reflux disease) Code(s): K21.9 - GASTRO-ESOPHAGEAL REFLUX DISEASE WITHOUT ESOPHAGITIS Status: Chronic (3) Hypothyroidism Code(s): E03.9 - HYPOTHYROIDISM, UNSPECIFIED Status: Chronic (4) Elevated troponin Code(s): R79.89 - OTHER SPECIFIED ABNORMAL FINDINGS OF BLOOD CHEMISTRY Status : Acute - Plan pt's cxr/ua negative. will replace vit d. mri cannot be done due to her pacer. echo pending. she has no chest pain. pt was evaluated by PT and she walked well. No elevated wbc. covid negative. if echo negative will discharge home.
[2019-10-31] MEDS ORDERED: Amlodipine 10 MG TAB PO SCH (17:45)
[2019-10-31] MEDS: Atorvastatin Calcium 20 MG TAB PO SCH (20:37)
[2019-11-01] MEDS: Levothyroxine Sodium 100 MCG TAB PO SCH (06:18)
[2019-11-01] MEDS: Ketotifen Fumarate 0.025% Ophth Soln 5 ml Bottle EA EYE SCH ×2 (08:40→21:09)
[2019-11-01] MEDS: Timolol 0.5% Ophth Soln 5 ml Bottle EA EYE SCH ×2 (08:40→21:09)
[2019-11-01] MEDS: Brimonidine Tartrate 0.2% Ophth Soln 5 ml Bottle EA EYE SCH ×2 (08:40→21:09)
[2019-11-01] MEDS: Cyanocobalamin (Vitamin B-12) 1,000 MCG TAB PO SCH (08:41)
[2019-11-01] MEDS: Aspirin 81 mg Enteric Coated Tablet PO SCH (08:41)
[2019-11-01] MEDS: Multivit, Therapeutic 1 TAB PO SCH (08:41)
[2019-11-01] MEDS: Enoxaparin Sodium 40 MG/0.4 ML SYRINGE SC SCH (08:42)
[2019-11-01] MEDS: Loratadine 10 MG TAB PO SCH (08:42)
[2019-11-01] MEDS: carBAMazepine 200 MG TAB PO SCH ×3 (08:42→21:08)
[2019-11-01] MEDS: Amlodipine 10 MG TAB PO SCH (08:42)
[2019-11-01] MEDS ORDERED: Cholecalciferol (Vitamin D3) 400 UNITS TAB PO SCH (09:00)
[2019-11-01] MEDS ORDERED: Non-Formulary Item 1 EACH (Esomeprazole Magnesium [Nexium] 40 MG) PO SCH (09:00)
[2019-11-01] MEDS ORDERED: Non-Formulary Item 1 EACH (Fexofenadine Hcl [Allegra Allergy] 180 MG) PO SCH (09:00)
[2019-11-01] MEDS ORDERED: Ondansetron ORAL SOLN. 4 MG/5 ML UDCUP PO PRN (10:47)
[2019-11-01] MEDS: Acetaminophen 325 MG TAB PO PRN (11:08)
--- NOTE | 2019-11-01 16:05 | PDOC.HOSPP ---
- Subjective Encounter Date: 11/01/19 Encounter Time: 09:30 Subjective: The patient reports having no complaints. When asked why she came to the hospital, seemed to have vague response. She states she does feel weak, but reports that she walks with a cane just fine. Denies abd pain, nauesa, vomiting. Pt reportedly had 7 second run of afib. Per nursing she has not eaten lunch or breakfast - Objective Vital Signs & Weight: Vital Signs (12 hours) Temp Pulse Pulse Resp BP BP BP 11/01/19 11:28 98.4 F 60 16 164/74 H 11/01/19 09:54 63 143/71 H 11/01/19 08:45 97.8 F 60 16 169/74 H 11/01/19 08:42 60 169/74 H 11/01/19 08:40 60 169/74 H Pulse Ox 11/01/19 11:28 11/01/19 09:54 11/01/19 08:45 94 L 11/01/19 08:42 11/01/19 08:40 Weight Weight 125 lb 14.4 oz I&O: 10/31/19 11/01/19 11/02/19 06:59 06:59 06:59 Intake Total 240 480 Output Total 750 1100 Balance -510 -620 Result Diagrams: 10/31/19 04:52 10/31/19 04:52 Hospitalist ROS - Review of Systems Constitutional: denies: fever, chills - Medication Medications: Active Medications Generic Name Dose Route Start Last Admin Trade Name Freq PRN Reason Stop Dose Admin Acetaminophen 650 mg 10/30/19 18:55 11/01/19 11:08 Tylenol PO 650 mg Q4H PRN Administration Headache/Fever/Mild Pain (1-3) Amlodipine Besylate 10 mg 11/01/19 09:00 11/01/19 08:42 Norvasc PO 10 mg DAILY KERA Administration Aspirin 81 mg 10/31/19 09:00 11/01/19 08:41 Ecotrin PO 81 mg DAILY KERA Administration Atorvastatin Calcium 20 mg 10/30/19 21:00 10/31/19 20:37 Lipitor PO 20 mg HS KERA Administration Brimonidine Tartrate 1 drop 10/31/19 09:00 11/01/19 08:40 Alphagan 0.2% Ophth Soln EA EYE 1 drp BID KERA Administration Carbamazepine 200 mg 10/31/19 15:00 11/01/19 14:21 Tegretol PO 200 mg TID KERA Administration Cholecalciferol 1,000 units 11/01/19 09:00 11/01/19 08:41 Vitamin D3 PO 1,000 units DAILY KERA Administration Cyanocobalamin 1,000 mcg 11/01/19 09:00 11/01/19 08:41 Vitamin B-12 PO 1,000 mcg DAILY KERA Administration Enoxaparin Sodium 40 mg 10/31/19 09:00 11/01/19 08:42 Lovenox SC 40 mg 0900 KERA Administration Ketotifen Fumarate 1 drop 10/31/19 09:00 11/01/19 08:40 Zaditor 0.025% Ophth Soln EA EYE 1 drop BID KERA Administration Levothyroxine Sodium 100 mcg 10/31/19 06:00 11/01/19 06:18 Synthroid PO 100 mcg 0600 KERA Administration Loratadine 10 mg 11/01/19 09:00 11/01/19 08:42 Claritin PO 10 mg DAILY KERA Administration Multivitamins 1 tab 10/31/19 09:00 11/01/19 08:41 Theragran PO 1 tab DAILY KERA Administration Pantoprazole Sodium 40 mg 11/01/19 09:00 11/01/19 08:41 Protonix PO 40 mg DAILY KERA Administration Timolol Maleate 1 drop 10/31/19 09:00 11/01/19 08:40 Timoptic 0.5% Ophth Soln EA EYE 1 drop BID KERA Administration - Exam General Appearance: NAD, awake alert Eye: PERRL, anicteric sclera ENT: normocephalic atraumatic, no oropharyngeal lesions Neck: supple, no JVD Heart: RRR, no gallops, no rubs Heart - other findings: murmur evident Respiratory: CTAB, no wheezes, no rales, no ronchi Gastrointestinal: soft, non-tender, non-distended, normal bowel sounds Extremities: no cyanosis, no clubbing, no edema Skin: normal turgor, no lesions, no rashes Hosp A/P - Plan CT brain: normal Chest X ray: normal ECHO: moderate to severe MR. Prolapse of mitral valve leaflet. Mild to moderate TR This is a 74 year old female with past medical history of hypertension, hypothyroidism who presented to the Er with weakness #Generalized weakness - continue with vitamin D supplementation - PT recommending rehab, #Moderate to severe MR #Atrial fibrillation - had moderate to severe MR. Prolapse of mitral valve. #Vitamin D deficiency - level was 12, continue supplementation #Subclinical hyperthyroidism - will discontinue levothyroxine #Hypertension - continue amlodipine Code status: full code
[2019-11-01 19:16] LABS: Magnesium 1.8 mg/dL (1.6-2.6); Potassium 3.1 mmol/L (3.5-5.1); Sodium 128 mmol/L (136-145)
[2019-11-01 19:17] LABS: Carbamazepine-Tegretol 16.4 ug/mL (4.0-12.0)
[2019-11-01] MEDS: Atorvastatin Calcium 20 MG TAB PO SCH (21:08)
--- NOTE | 2019-11-01 21:39 | PDOC.EVN ---
Event Note - Event Note Event Note: Spoke to . Pt has history of dementia per . He feels she has completely lost her memory and asks the same questions multiple times. HE states he was recently started on tegretol by Dr. Cedeno last week for pinched nerve in her neck causing facial pain and seizures. He feels she has become more confused since then. She also has been having poor appetite and has not been eating much for the past one month. Tegretol level checked: noted to be high at 16. Sodium 128, K 3.1 Will change carbamazepine to 200 mg bid? Place neurology consult in the am. Start IV fluids with dextrose Speech consult in am for evaluation of dysphagia
[2019-11-01] MEDS ORDERED: Potassium Chloride 20 MEQ TAB PO SCH (21:45)
[2019-11-01] MEDS: Dextrose 5 % And 0.9 % NaCl 1,000 ML IV SCH (22:26)
[2019-11-02 04:31] LABS: Hemoglobin 13.6 g/dL (12.0-16.0); Mean Corpuscular HGB CONC 33.3 g/dL (32.0-36.0); Mean Corpuscular Hemoglobin 33.6 pg (27.0-31.0); Mean Platelet Volume 8.7 fL (7.4-10.4); Platelet Count 182 thou/uL (130-400); RBC Distribution Width 12.7 % (11.5-14.5); Red Blood Cell (RBC) Count 4.04 mill/uL (4.20-5.40); White Blood Cell (WBC) Count 7.5 thou/uL (4.8-10.8)
[2019-11-02 04:49] LABS: Anion Gap 11 mmol/L (10-20); BUN (Urea Nitrogen) 14 mg/dL (9.8-20.1); Calc. Creatinine Clearance 53 mL/min (70-130); Calcium 9.3 mg/dL (7.8-10.44); Carbon Dioxide 27 mmol/L (23-31); Chloride 95 mmol/L (98-107); Estimated GFR-MDRD 68; Glucose 117 mg/dL (83-110); Potassium 4.3 mmol/L (3.5-5.1); Sodium 129 mmol/L (136-145)
[2019-11-02] MEDS ORDERED: carBAMazepine 200 MG TAB PO SCH (08:00)
[2019-11-02] MEDS: Enoxaparin Sodium 40 MG/0.4 ML SYRINGE SC SCH ×2 (08:00→08:13)
[2019-11-02] MEDS: Loratadine 10 MG TAB PO SCH (08:12)
[2019-11-02] MEDS: Multivit, Therapeutic 1 TAB PO SCH (08:12)
[2019-11-02] MEDS: Amlodipine 10 MG TAB PO SCH (08:13)
[2019-11-02] MEDS: Aspirin 81 mg Enteric Coated Tablet PO SCH (08:13)
[2019-11-02] MEDS: Cyanocobalamin (Vitamin B-12) 1,000 MCG TAB PO SCH (08:13)
[2019-11-02] MEDS: Ketotifen Fumarate 0.025% Ophth Soln 5 ml Bottle EA EYE SCH ×2 (08:14→20:51)
[2019-11-02] MEDS: Timolol 0.5% Ophth Soln 5 ml Bottle EA EYE SCH ×2 (08:14→20:52)
[2019-11-02] MEDS: Brimonidine Tartrate 0.2% Ophth Soln 5 ml Bottle EA EYE SCH ×2 (08:15→20:51)
--- NOTE | 2019-11-02 12:01 | CON ---
DATE OF CONSULTATION: 11/02/2019 CONSULTING PHYSICIAN: Hospitalist Service. IMPRESSION: Tegretol toxicity. PLAN: Discontinue Tegretol. HISTORY OF PRESENT ILLNESS: Ms. Salas is a 74-year-old woman whom I have seen in the office for management of neuropathy related pain. She previously tried gabapentin. She recently switched over to Tegretol. Her dose was increased due to continued symptoms. She started becoming more dizzy and lethargic. She was not thinking clearly. She was brought into the emergency room and had a CT scan of the brain done, this was unremarkable. Her Tegretol level was 16.4. Her dose has been decreased since admission to 400 mg per day. She was able to walk with physical therapy today. She reports she is feeling close to normal. She had been nauseous secondary to this as well and was given an antiemetic yesterday. She otherwise has no other new complaints. On exam, she is a bit lethargic. This morning, she awakened and followed commands. Her speech is fluent and clear. Cranial nerves were intact. Motor strength was symmetric. She had no fix or drift. She did have some nystagmus and lateral gaze. There was no sensory deficits. No abnormal movements were seen. LABORATORY DATA: EKG shows a paced rhythm. SUMMARY: Given the toxic Tegretol level, this would fit with her array of symptoms. I would discontinue it and will let her clear before starting anything new. Job ID: [id number]
--- NOTE | 2019-11-02 14:55 | PDOC.HOSPP ---
- Subjective Encounter Date: 11/02/19 Encounter Time: 10:30 Subjective: The patient states she ate some of her breakfast today, but per grand-son she did not eat much because she had to do physical therapy. She denies any headaches, abdominal pain, nausea, shortness of breath. Reports poor sleep last night. She denies dizziness. Patient states she does not want a feeding tube - Objective Vital Signs & Weight: Vital Signs (12 hours) Temp Pulse Resp BP BP BP Pulse Ox 11/02/19 11:29 97.5 F L 60 13 113/54 L 90 L 11/02/19 08:14 65 129/84 11/02/19 08:13 65 129/84 11/02/19 07:55 97.5 F L 65 15 129/84 98 11/02/19 04:00 98.4 F 60 18 119/56 L 92 L Weight Weight 123 lb 3.2 oz I&O: 11/01/19 11/02/19 11/03/19 06:59 06:59 06:59 Intake Total 480 1204 Output Total 1100 480 Balance -620 724 Result Diagrams: 11/02/19 03:59 11/02/19 03:59 Additional Labs: Accuchecks 11/01/19 18:32 POC Glucose 132 H Hospitalist ROS - Review of Systems Constitutional: denies: fever, chills - Medication Medications: Active Medications Generic Name Dose Route Start Last Admin Trade Name Freq PRN Reason Stop Dose Admin Acetaminophen 650 mg 10/30/19 18:55 11/01/19 11:08 Tylenol PO 650 mg Q4H PRN Administration Headache/Fever/Mild Pain (1-3) Amlodipine Besylate 10 mg 11/01/19 09:00 11/02/19 08:13 Norvasc PO 10 mg DAILY KERA Administration Aspirin 81 mg 10/31/19 09:00 11/02/19 08:13 Ecotrin PO 81 mg DAILY KERA Administration Atorvastatin Calcium 20 mg 10/30/19 21:00 11/01/19 21:08 Lipitor PO 20 mg HS KERA Administration Brimonidine Tartrate 1 drop 10/31/19 09:00 11/02/19 08:15 Alphagan 0.2% Ophth Soln EA EYE 1 drp BID KERA Administration Cholecalciferol 1,000 units 11/01/19 09:00 11/02/19 08:13 Vitamin D3 PO 1,000 units DAILY KERA Administration Cyanocobalamin 1,000 mcg 11/01/19 09:00 11/02/19 08:13 Vitamin B-12 PO 1,000 mcg DAILY KERA Administration Enoxaparin Sodium 40 mg 10/31/19 09:00 11/02/19 08:13 Lovenox SC 40 mg 0900 KERA Administration Dextrose/Sodium Chloride 1,000 mls @ 75 mls/hr 11/01/19 21:45 11/01/19 22:26 D5 0.9% Ns IV 1,000 mls .[id number] KERA Administration Ketotifen Fumarate 1 drop 10/31/19 09:00 11/02/19 08:14 Zaditor 0.025% Ophth Soln EA EYE 1 drop BID KERA Administration Loratadine 10 mg 11/01/19 09:00 11/02/19 08:12 Claritin PO 10 mg DAILY KERA Administration Multivitamins 1 tab 10/31/19 09:00 11/02/19 08:12 Theragran PO 1 tab DAILY KERA Administration Ondansetron HCl 4 mg 11/01/19 10:47 11/01/19 21:08 Zofran PO 4 mg Q6H PRN Administration Nausea/Vomiting Pantoprazole Sodium 40 mg 11/01/19 09:00 11/02/19 08:12 Protonix PO 40 mg DAILY KERA Administration Timolol Maleate 1 drop 10/31/19 09:00 11/02/19 08:14 Timoptic 0.5% Ophth Soln EA EYE 1 drop BID KERA Administration - Exam General Appearance: NAD General - other findings: lethargic but answers questions Eye: PERRL, anicteric sclera ENT: normocephalic atraumatic, no oropharyngeal lesions Neck: supple, no JVD Heart: RRR, no murmur, no gallops, no rubs Respiratory: CTAB, no wheezes, no rales, no ronchi Gastrointestinal: soft, non-tender, non-distended, normal bowel sounds Extremities: no cyanosis, no clubbing, no edema Skin: normal turgor, no lesions, no rashes Neurological: cranial nerve grossly intact, normal sensation to touch, no focal deficits, no new deficit Hosp A/P - Plan CT brain: normal Chest X ray: normal ECHO: moderate to severe MR. Prolapse of mitral valve leaflet. Mild to moderate TR This is a 74 year old female with past medical history of hypertension, hypothyroidism who presented to the Er with weakness #Acute encephalopathy possibly from tegretol toxicity #History of seizures - tegretol level was 16 yesterday. Neurology was consulted, discontinued for now. Will re-evaluate mental status fater #Hyponatremia #Orthostatic tachycardia - noted to have HR increase to 160 while standing. Sodium improved to 129 - continue with IV fluids #Generalized weakness - continue with vitamin D supplementation - PT recommending rehab, #Moderate to severe MR #Atrial fibrillation - had moderate to severe MR. Prolapse of mitral valve. #Vitamin D deficiency - level was 12, continue supplementation #Subclinical hyperthyroidism - will discontinue levothyroxine #Hypertension - continue amlodipine Code status: full code
[2019-11-02] MEDS ORDERED: Sodium Chloride 0.9% 500 ML IV SCH (15:00)
[2019-11-02] MEDS: Dextrose 5 % And 0.9 % NaCl 1,000 ML IV SCH (17:18)
[2019-11-02] MEDS: Atorvastatin Calcium 20 MG TAB PO SCH (20:51)
[2019-11-03 04:11] LABS: Hemoglobin 12.6 g/dL (12.0-16.0); Mean Corpuscular HGB CONC 33.9 g/dL (32.0-36.0); Mean Corpuscular Hemoglobin 34.2 pg (27.0-31.0); Mean Platelet Volume 8.9 fL (7.4-10.4); Platelet Count 160 thou/uL (130-400); RBC Distribution Width 12.8 % (11.5-14.5); White Blood Cell (WBC) Count 7.5 thou/uL (4.8-10.8)
[2019-11-03 04:28] LABS: Anion Gap 11 mmol/L (10-20); BUN (Urea Nitrogen) 12 mg/dL (9.8-20.1); Calc. Creatinine Clearance 56 mL/min (70-130); Calcium 9.6 mg/dL (7.8-10.44); Carbon Dioxide 26 mmol/L (23-31); Chloride 100 mmol/L (98-107); Estimated GFR-MDRD 75; Glucose 102 mg/dL (83-110); Potassium 3.7 mmol/L (3.5-5.1); Sodium 133 mmol/L (136-145)
[2019-11-03] MEDS: Amlodipine 10 MG TAB PO SCH (08:23)
[2019-11-03] MEDS: Cyanocobalamin (Vitamin B-12) 1,000 MCG TAB PO SCH (08:24)
[2019-11-03] MEDS: Loratadine 10 MG TAB PO SCH (08:24)
[2019-11-03] MEDS: Aspirin 81 mg Enteric Coated Tablet PO SCH (08:24)
[2019-11-03] MEDS: Multivit, Therapeutic 1 TAB PO SCH (08:24)
[2019-11-03] MEDS: Enoxaparin Sodium 40 MG/0.4 ML SYRINGE SC SCH (08:25)
[2019-11-03] MEDS: Ketotifen Fumarate 0.025% Ophth Soln 5 ml Bottle EA EYE SCH ×2 (08:25→20:08)
[2019-11-03] MEDS: Timolol 0.5% Ophth Soln 5 ml Bottle EA EYE SCH ×2 (08:26→20:08)
[2019-11-03] MEDS: Brimonidine Tartrate 0.2% Ophth Soln 5 ml Bottle EA EYE SCH ×2 (08:26→20:08)
[2019-11-03] MEDS: Sodium Chloride 0.9% 1,000 ML IV SCH ×2 (10:17→20:09)
--- NOTE | 2019-11-03 19:07 | PDOC.HOSPP ---
- Subjective Encounter Date: 11/03/19 Encounter Time: 19:06 Subjective: The jesus aburto is doing well. No dizziness or lightheadedness. No chest pain. She reports drinking coffee and eating solid food this afternoon - Objective Vital Signs & Weight: Vital Signs (12 hours) Temp Pulse Pulse Resp BP BP BP 11/03/19 17:50 98.3 F 78 20 152/81 H 11/03/19 15:35 98.4 F 73 18 168/71 H 11/03/19 13:36 71 135/63 11/03/19 11:40 98.1 F 65 16 129/62 11/03/19 08:26 70 140/63 11/03/19 08:25 11/03/19 08:23 70 140/63 11/03/19 08:07 98.7 F 70 16 140/63 Pulse Ox 11/03/19 17:50 95 11/03/19 15:35 96 11/03/19 13:36 11/03/19 11:40 96 11/03/19 08:26 11/03/19 08:25 95 11/03/19 08:23 11/03/19 08:07 95 Weight Weight 127 lb I&O: 11/02/19 11/03/19 11/04/19 06:59 06:59 06:59 Intake Total 1204 1605 940 Output Total 480 2120 Balance 724 -515 940 Result Diagrams: 11/03/19 03:54 11/03/19 03:53 Additional Labs: Accuchecks 11/03/19 17:10 POC Glucose 92 Hospitalist ROS - Review of Systems Constitutional: denies: fever, chills - Medication Medications: Active Medications Generic Name Dose Route Start Last Admin Trade Name Freq PRN Reason Stop Dose Admin Acetaminophen 650 mg 10/30/19 18:55 11/01/19 11:08 Tylenol PO 650 mg Q4H PRN Administration Headache/Fever/Mild Pain (1-3) Aspirin 81 mg 10/31/19 09:00 11/03/19 08:24 Ecotrin PO 81 mg DAILY KERA Administration Atorvastatin Calcium 20 mg 10/30/19 21:00 11/02/19 20:51 Lipitor PO 20 mg HS KERA Administration Brimonidine Tartrate 1 drop 10/31/19 09:00 11/03/19 08:26 Alphagan 0.2% Ophth Soln EA EYE 1 drp BID KERA Administration Cholecalciferol 1,000 units 11/01/19 09:00 11/03/19 08:24 Vitamin D3 PO 1,000 units DAILY KERA Administration Cyanocobalamin 1,000 mcg 11/01/19 09:00 11/03/19 08:24 Vitamin B-12 PO 1,000 mcg DAILY KERA Administration Enoxaparin Sodium 40 mg 10/31/19 09:00 11/03/19 08:25 Lovenox SC 40 mg 0900 KERA Administration Sodium Chloride 1,000 mls @ 100 mls/hr 11/03/19 09:30 11/03/19 10:17 Normal Saline 0.9% IV 1,000 mls .Q10H KERA Administration Ketotifen Fumarate 1 drop 10/31/19 09:00 11/03/19 08:25 Zaditor 0.025% Ophth Soln EA EYE 1 drop BID KERA Administration Loratadine 10 mg 11/01/19 09:00 11/03/19 08:24 Claritin PO 10 mg DAILY KERA Administration Multivitamins 1 tab 10/31/19 09:00 11/03/19 08:24 Theragran PO 1 tab DAILY KERA Administration Ondansetron HCl 4 mg 11/01/19 10:47 11/01/19 21:08 Zofran PO 4 mg Q6H PRN Administration Nausea/Vomiting Pantoprazole Sodium 40 mg 11/01/19 09:00 11/03/19 08:24 Protonix PO 40 mg DAILY KERA Administration Timolol Maleate 1 drop 10/31/19 09:00 11/03/19 08:26 Timoptic 0.5% Ophth Soln EA EYE 1 drop BID KERA Administration - Exam General Appearance: NAD, awake alert Eye: PERRL ENT: normocephalic atraumatic, no oropharyngeal lesions Neck: no JVD Heart: RRR, no murmur, no gallops, no rubs Respiratory: CTAB, no wheezes, no rales, no ronchi, normal chest expansion, no tachypnea, normal percussion Gastrointestinal: soft, non-tender, non-distended, normal bowel sounds, no splenomegaly Extremities: no cyanosis, no clubbing, no edema Skin: normal turgor, no lesions, no rashes Neurological: cranial nerve grossly intact, normal sensation to touch, no focal deficits, no new deficit Hosp A/P - Plan CT brain: normal Chest X ray: normal ECHO: moderate to severe MR. Prolapse of mitral valve leaflet. Mild to moderate TR This is a 74 year old female with past medical history of hypertension, hypothyroidism who presented to the Er with weakness #Acute encephalopathy possibly from tegretol toxicity #History of seizures - tegretol level was 16 yesterday. Neurology was consulted, discontinued for now. Mental status seems to have improved #Hyponatremia #Orthostatic tachycardia - sodium improved to 133 .Continue IV fluids, repeat BMP, if stable can dc fluids #Generalized weakness - continue with vitamin D supplementation - PT recommending rehab, but will have them re-eval tomorrow #Moderate to severe MR #Atrial fibrillation - had moderate to severe MR. Prolapse of mitral valve. #Vitamin D deficiency - level was 12, continue supplementation #Subclinical hyperthyroidism - will discontinue levothyroxine #Hypertension - continue amlodipine Code status: full code
[2019-11-03] MEDS: Atorvastatin Calcium 20 MG TAB PO SCH (20:09)
[2019-11-04 06:11] LABS: Anion Gap 10 mmol/L (10-20); BUN (Urea Nitrogen) 8 mg/dL (9.8-20.1); Calc. Creatinine Clearance 63 mL/min (70-130); Calcium 9.3 mg/dL (7.8-10.44); Carbon Dioxide 27 mmol/L (23-31); Chloride 102 mmol/L (98-107); Estimated GFR-MDRD 83; Glucose 81 mg/dL (83-110); Potassium 3.2 mmol/L (3.5-5.1); Sodium 136 mmol/L (136-145)
[2019-11-04] MEDS: Sodium Chloride 0.9% 1,000 ML IV SCH (06:24)
[2019-11-04] MEDS: Enoxaparin Sodium 40 MG/0.4 ML SYRINGE SC SCH (07:52)
[2019-11-04] MEDS: Aspirin 81 mg Enteric Coated Tablet PO SCH (07:53)
[2019-11-04] MEDS: Loratadine 10 MG TAB PO SCH (07:54)
[2019-11-04] MEDS: Multivit, Therapeutic 1 TAB PO SCH (07:54)
[2019-11-04] MEDS: Ketotifen Fumarate 0.025% Ophth Soln 5 ml Bottle EA EYE SCH ×2 (07:54→21:11)
[2019-11-04] MEDS: Cyanocobalamin (Vitamin B-12) 1,000 MCG TAB PO SCH (07:54)
[2019-11-04] MEDS: Timolol 0.5% Ophth Soln 5 ml Bottle EA EYE SCH ×2 (07:57→21:11)
[2019-11-04] MEDS ORDERED: Potassium Chloride 20 MEQ TAB PO SCH (08:45)
[2019-11-04] MEDS ORDERED: Docusate 100 MG CAP PO SCH ×2 (10:39→11:00)
[2019-11-04] MEDS: Brimonidine Tartrate 0.2% Ophth Soln 5 ml Bottle EA EYE SCH ×2 (11:09→21:10)
--- NOTE | 2019-11-04 16:34 | PDOC.HOSPP ---
- Subjective Encounter Date: 11/04/19 Encounter Time: 10:00 Subjective: The patient is doing well. She ate her breakfast. She did well with PT today and ambulated with a walker without assistance. - Objective Vital Signs & Weight: Vital Signs (12 hours) Temp Pulse Resp BP BP Pulse Ox 11/04/19 12:00 97.7 F 65 20 146/80 H 95 11/04/19 07:57 65 152/80 H 11/04/19 07:50 95 11/04/19 07:12 98.5 F 65 18 152/80 H 95 Weight Weight 149 lb 4.8 oz I&O: 11/03/19 11/04/19 11/05/19 06:59 06:59 06:59 Intake Total 1605 2640 Output Total 2120 Balance -515 2640 Result Diagrams: 11/03/19 03:54 11/04/19 05:31 Additional Labs: Accuchecks 11/04/19 11/03/19 11:48 17:10 POC Glucose 82 92 Hospitalist ROS - Review of Systems Constitutional: denies: fever, chills - Medication Medications: Active Medications Generic Name Dose Route Start Last Admin Trade Name Freq PRN Reason Stop Dose Admin Acetaminophen 650 mg 10/30/19 18:55 11/01/19 11:08 Tylenol PO 650 mg Q4H PRN Administration Headache/Fever/Mild Pain (1-3) Aspirin 81 mg 10/31/19 09:00 11/04/19 07:53 Ecotrin PO 81 mg DAILY KERA Administration Atorvastatin Calcium 20 mg 10/30/19 21:00 11/03/19 20:09 Lipitor PO 20 mg HS KERA Administration Brimonidine Tartrate 1 drop 10/31/19 09:00 11/04/19 11:09 Alphagan 0.2% Ophth Soln EA EYE 1 drp BID KERA Administration Cholecalciferol 1,000 units 11/01/19 09:00 11/04/19 07:54 Vitamin D3 PO 1,000 units DAILY KERA Administration Cyanocobalamin 1,000 mcg 11/01/19 09:00 11/04/19 07:54 Vitamin B-12 PO 1,000 mcg DAILY KERA Administration Enoxaparin Sodium 40 mg 10/31/19 09:00 11/04/19 07:52 Lovenox SC 40 mg 0900 KERA Administration Ketotifen Fumarate 1 drop 10/31/19 09:00 11/04/19 07:54 Zaditor 0.025% Ophth Soln EA EYE 1 drop BID KERA Administration Loratadine 10 mg 11/01/19 09:00 11/04/19 07:54 Claritin PO 10 mg DAILY KERA Administration Multivitamins 1 tab 10/31/19 09:00 11/04/19 07:54 Theragran PO 1 tab DAILY KERA Administration Ondansetron HCl 4 mg 11/01/19 10:47 11/01/19 21:08 Zofran PO 4 mg Q6H PRN Administration Nausea/Vomiting Pantoprazole Sodium 40 mg 11/01/19 09:00 11/04/19 07:53 Protonix PO 40 mg DAILY KERA Administration Sodium Chloride 10 ml 11/03/19 21:00 11/04/19 07:58 Flush - Normal Saline IVF Not Given Q12HR KERA Timolol Maleate 1 drop 10/31/19 09:00 11/04/19 07:57 Timoptic 0.5% Ophth Soln EA EYE 1 drop BID KERA Administration - Exam General Appearance: NAD, awake alert Eye: PERRL, anicteric sclera ENT: normocephalic atraumatic, no oropharyngeal lesions Neck: no JVD Heart: RRR, no murmur, no gallops, no rubs Respiratory: CTAB, no wheezes, no rales, no ronchi Gastrointestinal: soft, non-tender, non-distended, normal bowel sounds Extremities: no cyanosis, no clubbing, no edema Hosp A/P - Plan CT brain: normal Chest X ray: normal ECHO: moderate to severe MR. Prolapse of mitral valve leaflet. Mild to moderate TR This is a 74 year old female with past medical history of hypertension, hypothyroidism who presented to the Er with weakness #Acute encephalopathy possibly from tegretol toxicity- resolving #History of seizures - tegretol level was 16. Tegretol discontinued by neurology. No seizures so far - mental status improved #Generalized weakness - continue with vitamin D supplementation - PT recommending rehab. Did well without assistance. PT to walk tomorrow and see if she can do home with home health #Hyponatremia #Orthostatic tachycardia - sodium improved to 136. Discontinue Iv fluids #Moderate to severe MR #Atrial fibrillation - had moderate to severe MR. Prolapse of mitral valve. #Vitamin D deficiency - level was 12, continue supplementation #Subclinical hyperthyroidism - will discontinue levothyroxine #Hypertension - continue amlodipine Code status: full code
[2019-11-04] MEDS: Acetaminophen 325 MG TAB PO PRN (17:49)
[2019-11-04] MEDS: Atorvastatin Calcium 20 MG TAB PO SCH (21:11)
[2019-11-04] MEDS: Docusate 100 MG CAP PO SCH (21:11)
[2019-11-05 06:47] LABS: Anion Gap 12 mmol/L (10-20); BUN (Urea Nitrogen) 8 mg/dL (9.8-20.1); Calc. Creatinine Clearance 76 mL/min (70-130); Calcium 9.7 mg/dL (7.8-10.44); Carbon Dioxide 26 mmol/L (23-31); Chloride 100 mmol/L (98-107); Estimated GFR-MDRD 84; Glucose 82 mg/dL (83-110); Potassium 3.5 mmol/L (3.5-5.1); Sodium 134 mmol/L (136-145)
[2019-11-05] MEDS: Multivit, Therapeutic 1 TAB PO SCH (08:14)
[2019-11-05] MEDS: Aspirin 81 mg Enteric Coated Tablet PO SCH (08:14)
[2019-11-05] MEDS: Docusate 100 MG CAP PO SCH (08:14)
[2019-11-05] MEDS: Cyanocobalamin (Vitamin B-12) 1,000 MCG TAB PO SCH (08:15)
[2019-11-05] MEDS: Loratadine 10 MG TAB PO SCH (08:15)
[2019-11-05] MEDS: Enoxaparin Sodium 40 MG/0.4 ML SYRINGE SC SCH (08:15)
[2019-11-05] MEDS: Ketotifen Fumarate 0.025% Ophth Soln 5 ml Bottle EA EYE SCH (08:16)
[2019-11-05] MEDS: Timolol 0.5% Ophth Soln 5 ml Bottle EA EYE SCH (08:16)
[2019-11-05] MEDS: Brimonidine Tartrate 0.2% Ophth Soln 5 ml Bottle EA EYE SCH (09:07)
[2019-11-05] MEDS: Acetaminophen 325 MG TAB PO PRN (10:33)
--- NOTE | 2019-11-05 14:10 | DIS ---
DATE OF ADMISSION: 10/30/2019 DATE OF DISCHARGE: 11/04/2019 DISCHARGE DIAGNOSES: 1. Acute encephalopathy, likely secondary to Tegretol toxicity. 2. Vitamin D deficiency. 3. Hyponatremia. 4. Orthostatic tachycardia. 5. Subclinical hyperthyroidism. 6. Generalized weakness. HOSPITAL CONSULTATIONS: Neurology with Dr. Shaquille Cedeno. PROCEDURES: None. BRIEF HISTORY OF PRESENT ILLNESS: This is a 74-year-old female with past medical history of atrial fibrillation, hypertension, who presented to the emergency room with generalized weakness x1 day. According to the , the patient had also been having a decreased p.o. intake for the past 1 month. She is also very weak and unable to ambulate that much. He also reported that she has been having trouble with word finding, memory difficulties, and lethargy. The patient was admitted for further workup. HOSPITAL COURSE: 1. Acute encephalopathy secondary to Tegretol toxicity: The patient had a Tegretol level checked, which was 16. The patient was recently started on this [address] Cedeno. Neurology was consulted. The patient's Tegretol was discontinued. Her mental status improved, thereafter. She did have a CT scan of her brain on the , which showed no acute disease. We were unable to do an MRI of her brain secondary to her pacemaker. She had no seizures after coming off the Tegretol. Her mental status resumed to baseline per . She will be discharged and follow up with her PCP. 2. Hyponatremia/orthostatic tachycardia: Sodium level was 128 on the . She was given IV fluids with improvement in her sodium to 136. The patient is eating adequately at this time. 3. Generalized weakness: The patient had a COVID PCR testing checked, which was negative. She had vitamin D levels checked, which was low at 12. She will be discharged on high dose vitamin D supplementation at 50,000 units once a week for 8 weeks. She should take 800 units daily thereafter and follow up with her PCP for repeat vitamin D testing. Physical Therapy initially evaluated the patient and recommended rehab. However, after continued physical therapy while in the hospital, she was able to ambulate with a walker without assistance and even go up the stairs without assistance. Therefore, she will be discharged home with Home Health. She was prescribed a walker on discharge. 4. Orthostatic tachycardia: Heart rate went up to 160 while standing. After receiving IV fluids, this resolved. Echocardiogram was checked, which showed [id number] mitral regurgitation. This can be followed up further as an outpatient. 5. Subclinical hyperthyroidism: TSH was low at 0.2169. Her free T4 was normal. She was initially started on levothyroxine while in the hospital. However, this was discontinued when she developed some atrial fibrillation with RVR. She had no recurrence of her atrial fibrillation. Her thyroid function study test can be repeated in 6 weeks. 6. Elevated troponin: The patient have mildly elevated troponin of 0.030 on the . She had no chest pain. Her echocardiogram showed no wall motion abnormalities. DISCHARGE PHYSICAL EXAMINATION: VITAL SIGNS: Temperature 98.6, heart rate 78, blood pressure 135/84, and O2 saturation 94% on room air. GENERAL: The patient is alert, awake, and oriented x2. CVS: Regular rate and rhythm with no murmurs, rubs, or gallops. LUNGS: Clear to auscultation bilaterally. ABDOMEN: Positive bowel sounds. Soft, nontender, and nondistended. EXTREMITIES: No edema. PERTINENT LABORATORY DATA: CBC on 11/02: Normal. BMP on 11/04: Sodium is 134. Rest of BMP is normal. LFTs on 10/29: AST 23, ALT 16, and alkaline phosphatase 49. Vitamin B12: 361. Folate: 8.40. Vitamin D 25-OH: 12.0. TSH: 0.2169. Free T4: 1.29. UA on 10/29: Shows 2+ blood, 21 to 50 rbc's, 0 to 3 white blood cells. Carbamazepine level: 16.4. COVID PCR serology: Negative. IMAGING DATA: CT brain on 10/29: Shows no acute process. Chest x-ray on 10/29: Shows no acute process. Echo on 10/31: EF 55% to 60%, [id number] MR, [id number] TR, mitral valve prolapse. DISCHARGE CONDITION: Stable for discharge home with home health. DIET: Heart-healthy diet. DISCHARGE MEDICATIONS: New prescriptions: Ergocalciferol 50,000 units p.o. q.7 x8 tablets. Discontinued medications: Tegretol. DISCHARGE INSTRUCTIONS: The patient to follow up with her PCP in a week. She should stop taking Tegretol. She should start taking vitamin D supplements 50, 000 units for 8 weeks, then 800 units after that. She should have her thyroid function tests repeated in 6 weeks as well as vitamin D levels. Job ID: [id number] [facility]
[2019-11-05 17:07] VITALS: BP 135/86; TEMP 98.2
[2019-11-07] MEDS ORDERED: Ergocalciferol 1.25 MG(50,000 UNITS) CAP PO SCH (09:00)
== END 2019-11-05 16:20 | disposition home health service (06) | DRG 92 ==
LOC: ERS 15:38 → OBSVTOIN 17:40 → 2SW 17:40 → 2NO 10-31 15:15 → T4-A 11-03 17:54
PROVIDERS: ADMIT Internal Medicine; ATTEND Internal Medicine
DX: G92 Toxic encephalopathy (principal); E87.1 Hypo-osmolality and hyponatremia; T42.1X5A Adverse effect of iminostilbenes, initial encounter; E78.5 Hyperlipidemia, unspecified; E78.00 Pure hypercholesterolemia, unspecified; M54.12 Radiculopathy, cervical region; K21.9 Gastro-esophageal reflux disease without esophagitis; I48.91 Unspecified atrial fibrillation; I34.0 Nonrheumatic mitral (valve) insufficiency; E55.9 Vitamin D deficiency, unspecified; E02 Subclinical iodine-deficiency hypothyroidism; I10 Essential (primary) hypertension; R00.0 Tachycardia, unspecified; Z87.891 Personal history of nicotine dependence; Z79.890 Hormone replacement therapy; Z79.899 Other long term (current) drug therapy
CPT/HCPCS: 36415; 36416; 51701; 70450; 71045; 80048; 80053; 80156; 81003; 81015; 82306; 82310; 82553; 82607; 82746; 83735; 84132; 84295; 84439; 84443; 84484; 85025; 85027; 87635; 93005; 93306; A4353; J1650; U0003

== ENCOUNTER 2020-02-02 14:06 | Emergency (ER) | payer MEDICARE, OTHER ==
[2020-02-03 16:02] LABS: SARS-CoV-2 MS2 Positive; SARS-CoV-2 N Gene Negative; SARS-CoV-2 S Gene Negative; SARS-CoV-2 by NAA Not Detected (NotDetected); SARS-CoV-2 orf1ab Negative
== END 2020-02-02 14:55 | disposition home or self-care (01) ==
LOC: ERS 14:06
DX: Z20.828 Contact with and (suspected) exposure to other viral communicable diseases (principal); E03.9 Hypothyroidism, unspecified; E78.5 Hyperlipidemia, unspecified; E78.00 Pure hypercholesterolemia, unspecified; Z87.891 Personal history of nicotine dependence; Z79.899 Other long term (current) drug therapy
CPT/HCPCS: 99283; U0003; 87635

== ENCOUNTER 2021-09-22 11:16 | Emergency (ER) | payer MEDICARE, SELFPAY ==
[2021-09-22] MEDS ORDERED: Boostrix 0.5 ML (Tdap) VIAL ONE (12:54)
[2021-09-22] MEDS ORDERED: Xylocaine 1% w/ Epi 1:100K 10 ML VIAL ONE (12:54)
== END 2021-09-22 14:33 | disposition home or self-care (01) ==
LOC: ERS 11:16
DX: S91.012A Laceration without foreign body, left ankle, initial encounter (principal); Z23 Encounter for immunization; E03.9 Hypothyroidism, unspecified; E78.5 Hyperlipidemia, unspecified; E78.00 Pure hypercholesterolemia, unspecified; Z87.891 Personal history of nicotine dependence; W22.8XXA Striking against or struck by other objects, initial encounter; Y92.129 Unspecified place in nursing home as the place of occurrence of the external cause
CPT/HCPCS: 12002; 90471; 90715

== ENCOUNTER 2022-06-21 17:02 | Emergency (ER) | payer MEDICARE, SELFPAY ==
[2022-06-21] MEDS ORDERED: Boostrix 0.5 ML (Tdap) VIAL (>/=7 yrs of age) ONE (17:28)
== END 2022-06-21 19:56 ==
LOC: ERS 17:02
DX: S00.03XA Contusion of scalp, initial encounter (principal); I10 Essential (primary) hypertension; S80.211A Abrasion, right knee, initial encounter; E78.5 Hyperlipidemia, unspecified; E03.9 Hypothyroidism, unspecified; K21.9 Gastro-esophageal reflux disease without esophagitis; W18.49XA Other slipping, tripping and stumbling without falling, initial encounter; Z87.891 Personal history of nicotine dependence; Z23 Encounter for immunization
CPT/HCPCS: 70450; 72125; 90471; 90715; 93005

== ENCOUNTER 2022-06-24 12:11 | Inpatient (IN) | payer MEDICARE, SELFPAY ==
[2022-06-24 13:42] LABS: #Eosinphils 0.3 thou/uL (0.0-0.7); #Lymphocytes 1.2 thou/uL (1.20-3.40); #Monocytes 0.7 thou/uL (0.11-0.59); #Neutrophils 5.2 thou/uL (1.40-6.50); %Basophils 0.6 % (0.0-1.0); %Eosinophils 4.6 % (0.0-10.0); %Lymphocytes 16.7 % (21.0-51.0); %Monocytes 9.2 % (0.0-10.0); Hemoglobin 12.2 g/dL (12.0-16.0); Mean Corpuscular HGB CONC 33.8 g/dL (32.0-36.0); Mean Corpuscular Hemoglobin 33.8 pg (27.0-31.0); Mean Corpuscular Volume 99.8 fl (78.0-98.0); Mean Platelet Volume 10.2 fL (7.4-10.4); Platelet Count 120 10x3/uL (130-400); RBC Distribution Width 13.5 % (11.5-14.5); Red Blood Cell (RBC) Count 3.61 mill/uL (4.20-5.40); White Blood Cell (WBC) Count 7.5 10x3/uL (4.8-10.8)
[2022-06-24 14:02] LABS: ALT (SGPT) 14 U/L (8-55); AST (SGOT) 26 U/L (5-34); Albumin 3.9 g/dL (3.4-4.8); Alkaline Phosphatase 60 U/L (40-110); Anion Gap 14 mmol/L (10-20); BUN (Urea Nitrogen) 21 mg/dL (9.8-20.1); Calc. Creatinine Clearance 0 mL/min (70-130); Calcium 9.6 mg/dL (7.8-10.44); Carbon Dioxide 25 mmol/L (23-31); Chloride 105 mmol/L (98-107); Estimated GFR 52; Globulin 2.7 g/dL (2.4-3.5); Glucose 82 mg/dL (83-110); Potassium 3.9 mmol/L (3.5-5.1); Protein, Total 6.6 g/dL (5.8-8.1); Sodium 140 mmol/L (136-145)
[2022-06-24 14:34] LABS: Bacteria/HPF None Seen HPF (None Seen); Bilirubin Negative (Negative); Blood, Urine 3+ (Negative); Clarity Clear (Clear); Glucose, Urine (Dipstick) Normal (Negative); Ketone, Urine 10 mg/dL (Negative); Leukocyte 250 Leu/uL (Negative); Nitrite Negative (Negative); Protein, Urine (Dipstick) 50 mg/dL (Neg-Trace); RBC/HPF Greater than 50 HPF (0-3); Specific Gravity, Urine 1.026 (1.002-1.036); Squamous Epithelial None Seen HPF (0-3); Urobilinogen 6 mg/dL (Less than 2); WBC/HPF 21-50 HPF (0-3)
[2022-06-24] MEDS ORDERED: cefTRIAXone\\ROCEPHIN 1 GM VIAL ONE (15:22)
[2022-06-24] MEDS ORDERED: Polyethylene Glycol 3350 17 GM Packet PO PRN (15:35)
[2022-06-24] MEDS ORDERED: hydrALAZINE 20 MG/ML VIAL ONE (16:49)
[2022-06-24 18:11] VITALS: BMI 20.5
[2022-06-24] MEDS: Timolol 0.5% Ophth Soln 5 ml Bottle EA EYE SCH (20:29)
[2022-06-24] MEDS: Atorvastatin Calcium 20 MG TAB PO SCH (20:29)
[2022-06-24] MEDS: Brimonidine Tartrate 0.2% Ophth Soln 5 ml Bottle EA EYE SCH (20:30)
[2022-06-24] MEDS: Acetaminophen 325 MG TAB PO PRN (20:31)
[2022-06-25 07:53] LABS: #Basophils 0.1 thou/uL (0.0-0.2); #Eosinphils 0.5 thou/uL (0.0-0.7); #Lymphocytes 1.4 thou/uL (1.20-3.40); #Monocytes 0.8 thou/uL (0.11-0.59); #Neutrophils 5.7 thou/uL (1.40-6.50); %Basophils 0.7 % (0.0-1.0); %Eosinophils 5.8 % (0.0-10.0); %Lymphocytes 17.1 % (21.0-51.0); %Monocytes 9.1 % (0.0-10.0); %Neutrophils 67.5 % (42.0-75.0); Hemoglobin 11.8 g/dL (12.0-16.0); Mean Corpuscular Hemoglobin 34.2 pg (27.0-31.0); Mean Platelet Volume 10.6 fL (7.4-10.4); Platelet Count 135 10x3/uL (130-400); RBC Distribution Width 13.7 % (11.5-14.5); Red Blood Cell (RBC) Count 3.44 mill/uL (4.20-5.40); White Blood Cell (WBC) Count 8.4 10x3/uL (4.8-10.8)
[2022-06-25 08:12] LABS: Anion Gap 13 mmol/L (10-20); BUN (Urea Nitrogen) 17 mg/dL (9.8-20.1); Calc. Creatinine Clearance 52 mL/min (70-130); Calcium 9.3 mg/dL (7.8-10.44); Carbon Dioxide 22 mmol/L (23-31); Chloride 109 mmol/L (98-107); Estimated GFR 75; Glucose 74 mg/dL (83-110); Potassium 3.8 mmol/L (3.5-5.1); Sodium 140 mmol/L (136-145)
[2022-06-25] MEDS: Levothyroxine Sodium 100 MCG TAB PO SCH (08:21)
[2022-06-25] MEDS: Aspirin 81 mg Enteric Coated Tablet PO SCH (08:21)
[2022-06-25] MEDS: Timolol 0.5% Ophth Soln 5 ml Bottle EA EYE SCH ×2 (08:30→20:01)
[2022-06-25] MEDS: Brimonidine Tartrate 0.2% Ophth Soln 5 ml Bottle EA EYE SCH ×2 (08:32→20:01)
[2022-06-25] MEDS ORDERED: Brimonidine Tartrate 0.2% Ophth Soln 5 ml Bottle EA EYE SCH (09:00)
[2022-06-25] MEDS: Donepezil HCl 10 MG TAB PO SCH (09:06)
[2022-06-25] MEDS: Pregabalin 75 MG CAP PO SCH ×2 (09:06→19:58)
[2022-06-25] MEDS: cefTRIAXone\\ROCEPHIN 1 GM in Sodium Chloride 0.9% 100 ML IVPB SCH (15:29)
[2022-06-25] MEDS: Multivit, Therapeutic 1 TAB PO SCH (19:58)
[2022-06-25] MEDS: Ondansetron PF 4 MG/2 ML Vial IVP PRN (19:58)
[2022-06-25] MEDS: Atorvastatin Calcium 20 MG TAB PO SCH (19:58)
[2022-06-26] MEDS: Pregabalin 75 MG CAP PO SCH ×2 (08:16→21:25)
[2022-06-26] MEDS: Aspirin 81 mg Enteric Coated Tablet PO SCH (08:16)
[2022-06-26] MEDS: Levothyroxine Sodium 100 MCG TAB PO SCH (08:16)
[2022-06-26] MEDS: Donepezil HCl 10 MG TAB PO SCH (08:16)
[2022-06-26] MEDS: Brimonidine Tartrate 0.2% Ophth Soln 5 ml Bottle EA EYE SCH ×2 (08:18→21:26)
[2022-06-26] MEDS: Timolol 0.5% Ophth Soln 5 ml Bottle EA EYE SCH ×2 (08:18→21:26)
[2022-06-26] MEDS ORDERED: Cyanocobalamin 1000 MCG/ML VIAL IM SCH (13:00)
[2022-06-26] MEDS ORDERED: Electrolyte Replacement Protocol 1 EACH FS SCH (13:00)
[2022-06-26] MEDS: cefTRIAXone\\ROCEPHIN 1 GM in Sodium Chloride 0.9% 100 ML IVPB SCH (15:32)
[2022-06-26] MEDS: Ondansetron PF 4 MG/2 ML Vial IVP PRN (17:34)
[2022-06-26] MEDS: Acetaminophen 325 MG TAB PO PRN (17:34)
[2022-06-26 19:07] LABS: Bacteria/HPF None Seen HPF (None Seen); Bilirubin Negative (Negative); Blood, Urine 2+ (Negative); Clarity Clear (Clear); Glucose, Urine (Dipstick) Normal (Negative); Ketone, Urine Negative (Negative); Leukocyte Negative Leu/uL (Negative); Nitrite Negative (Negative); Protein, Urine (Dipstick) 10 mg/dL (Neg-Trace); Specific Gravity, Urine 1.014 (1.002-1.036); Squamous Epithelial None Seen HPF (0-3); Urobilinogen Normal mg/dL (Less than 2); WBC/HPF 0-3 HPF (0-3); pH, Urine 5.5 (5.0-9.0)
[2022-06-26] MEDS: Atorvastatin Calcium 20 MG TAB PO SCH (21:26)
[2022-06-26] MEDS: Multivit, Therapeutic 1 TAB PO SCH (21:26)
[2022-06-27 07:14] LABS: #Basophils 0.1 thou/uL (0.0-0.2); #Eosinphils 0.4 thou/uL (0.0-0.7); #Lymphocytes 1.1 thou/uL (1.20-3.40); #Monocytes 0.5 thou/uL (0.11-0.59); #Neutrophils 3.1 thou/uL (1.40-6.50); %Basophils 1.4 % (0.0-1.0); %Eosinophils 7.7 % (0.0-10.0); %Lymphocytes 21.5 % (21.0-51.0); %Monocytes 9.4 % (0.0-10.0); %Neutrophils 60.1 % (42.0-75.0); Hemoglobin 11.7 g/dL (12.0-16.0); Mean Corpuscular HGB CONC 32.8 g/dL (32.0-36.0); Mean Corpuscular Hemoglobin 33.4 pg (27.0-31.0); Mean Platelet Volume 10.1 fL (7.4-10.4); Platelet Count 138 10x3/uL (130-400); RBC Distribution Width 13.6 % (11.5-14.5); Red Blood Cell (RBC) Count 3.49 mill/uL (4.20-5.40); White Blood Cell (WBC) Count 5.1 10x3/uL (4.8-10.8)
[2022-06-27 07:19] LABS: Anion Gap 11 mmol/L (10-20); BUN (Urea Nitrogen) 14 mg/dL (9.8-20.1); Calc. Creatinine Clearance 44 mL/min (70-130); Calcium 9.1 mg/dL (7.8-10.44); Carbon Dioxide 25 mmol/L (23-31); Chloride 106 mmol/L (98-107); Estimated GFR 62; Glucose 80 mg/dL (83-110); Magnesium 1.9 mg/dL (1.6-2.6); Phosphorus 3.5 mg/dL (2.3-4.7); Potassium 3.6 mmol/L (3.5-5.1); Sodium 138 mmol/L (136-145)
[2022-06-27] MEDS ORDERED: Magnesium 2 GM/50 ML(in water) 2 GM in Premix Bag 1 BAG IVPB SCH (08:00)
[2022-06-27] MEDS: Brimonidine Tartrate 0.2% Ophth Soln 5 ml Bottle EA EYE SCH ×2 (08:21→20:16)
[2022-06-27] MEDS: Donepezil HCl 10 MG TAB PO SCH (08:21)
[2022-06-27] MEDS: Pregabalin 75 MG CAP PO SCH ×2 (08:21→20:11)
[2022-06-27] MEDS: Cyanocobalamin (Vitamin B-12) 1,000 MCG TAB PO SCH (08:21)
[2022-06-27] MEDS: Aspirin 81 mg Enteric Coated Tablet PO SCH (08:21)
[2022-06-27] MEDS: Levothyroxine Sodium 100 MCG TAB PO SCH (08:21)
[2022-06-27] MEDS: Timolol 0.5% Ophth Soln 5 ml Bottle EA EYE SCH ×2 (08:21→20:17)
[2022-06-27] MEDS: Acetaminophen 325 MG TAB PO PRN (10:47)
[2022-06-27] MEDS: cefTRIAXone\\ROCEPHIN 1 GM in Sodium Chloride 0.9% 100 ML IVPB SCH (15:36)
[2022-06-27] MEDS: Atorvastatin Calcium 20 MG TAB PO SCH (20:11)
[2022-06-27] MEDS: Multivit, Therapeutic 1 TAB PO SCH (20:11)
[2022-06-28] MEDS: Pregabalin 75 MG CAP PO SCH (08:18)
[2022-06-28] MEDS: Cyanocobalamin (Vitamin B-12) 1,000 MCG TAB PO SCH (08:18)
[2022-06-28] MEDS: Aspirin 81 mg Enteric Coated Tablet PO SCH (08:18)
[2022-06-28] MEDS: Donepezil HCl 10 MG TAB PO SCH (08:18)
[2022-06-28] MEDS: Levothyroxine Sodium 100 MCG TAB PO SCH (08:18)
[2022-06-28] MEDS: Timolol 0.5% Ophth Soln 5 ml Bottle EA EYE SCH (08:19)
[2022-06-28] MEDS: Brimonidine Tartrate 0.2% Ophth Soln 5 ml Bottle EA EYE SCH (08:19)
[2022-06-28 09:36] VITALS: TEMP 98
[2022-06-28] MEDS ORDERED: cefTRIAXone\\ROCEPHIN 1 GM in Sodium Chloride 0.9% 100 ML IVPB SCH (10:15)
[2022-06-28 13:13] VITALS: BP 111/91
[2022-07-01] MEDS ORDERED: Ergocalciferol 1.25 MG(50,000 UNITS) CAP PO SCH (09:00)
== END 2022-06-28 14:30 | disposition home health service (06) | DRG 689 ==
LOC: ERS 12:11 → T4-A 15:26 → OBSVTOIN 06-25 13:23
PROVIDERS: ADMIT Internal Medicine; ATTEND Internal Medicine
DX: N39.0 Urinary tract infection, site not specified (principal); G93.41 Metabolic encephalopathy; E03.9 Hypothyroidism, unspecified; E86.0 Dehydration; E16.2 Hypoglycemia, unspecified; K21.9 Gastro-esophageal reflux disease without esophagitis; F03.90 Unspecified dementia, unspecified severity, without behavioral disturbance, psychotic disturbance, mood disturbance, and anxiety; I48.0 Paroxysmal atrial fibrillation; G89.29 Other chronic pain; E83.42 Hypomagnesemia; R31.29 Other microscopic hematuria; D75.89 Other specified diseases of blood and blood-forming organs; N18.2 Chronic kidney disease, stage 2 (mild); Z20.822 Contact with and (suspected) exposure to COVID-19; Z88.8 Allergy status to other drugs, medicaments and biological substances; Z79.899 Other long term (current) drug therapy; Z79.82 Long term (current) use of aspirin; Z90.49 Acquired absence of other specified parts of digestive tract; Z98.890 Other specified postprocedural states; Z95.0 Presence of cardiac pacemaker
CPT/HCPCS: 36415; 36416; 70450; 71045; 72125; 80048; 80053; 81001; 81003; 81015; 83735; 84100; 84484; 85025; 87086; 93005; 96365; 96372; G0378; J0360; J0696; J1650; J2405; J3420; J3475; J3490; U0003; U0005

== ENCOUNTER 2023-02-04 12:09 | Emergency (ER) | payer MEDICARE ==
[2023-02-04] MEDS ORDERED: Bacitracin 1 PK ONE ×2 (12:41→13:55)
[2023-02-04] MEDS ORDERED: Boostrix 0.5 ML (Tdap) VIAL (>/=7 yrs of age) ONE (12:41)
[2023-02-04] MEDS ORDERED: Lidocaine 1% w/Epinephrine 1:100K 20 ML VIAL ONE (12:41)
== END 2023-02-04 14:12 | disposition home or self-care (01) ==
LOC: ERS 12:09
DX: S81.811A Laceration without foreign body, right lower leg, initial encounter (principal); K21.9 Gastro-esophageal reflux disease without esophagitis; E78.5 Hyperlipidemia, unspecified; I48.91 Unspecified atrial fibrillation; I10 Essential (primary) hypertension; E03.9 Hypothyroidism, unspecified; V00.818A Other accident with wheelchair (powered), initial encounter
CPT/HCPCS: 12004; 90471; 90715